=== PATIENT | female | born 1935 | race Caucasian/White ===

== ENCOUNTER → 2023-10-21 12:04 | Outpatient (REF) | payer MEDICARE, BC, SELFPAY ==
[2023-10-21 13:12] LABS: % Basophils 0.5 % (0-2); % Eosinophils 2.2 % (0-6); % Immature Granulocytes 0.2 % (0-0.5); % Lymphocytes 14.4 % (20.5-51.1); % Monocytes 9.1 % (1.7-9.3); % Neutrophils 73.6 % (42.2-75.2); Absolute Eosinophils 0.1 10^3/uL (0-0.7); Absolute Lymphocytes 0.8 10^3/uL (1.2-3.4); Absolute Monocytes 0.5 10^3/uL (0.1-0.6); Absolute Neutrophils 4.3 10^3/uL (1.4-6.5); Hematocrit 36.2 % (37.0-47.0); Hemoglobin 12.1 g/dL (12.0-16.0); Mean Corp Hgb Conc. 33.4 g/dL (33.0-37.0); Mean Corpuscular Hgb 30.7 pg (27.0-31.0); Mean Corpuscular Volume 91.9 fL (81.0-99.0); Mean Platelet Volume 10.3 fL (7.4-10.4); Nucleated Red Blood Cells % 0 %; Platelet Count 253 10^3/uL (130-400); Red Blood Cell Count 3.94 10^6/uL (4.20-5.40); Red Cell Dist. Width 12.2 % (11.5-14.5); White Blood Cell Count 5.9 10^3/uL (4.8-10.8)
[2023-10-21 13:55] LABS: ALT (SGPT) 40 U/L (0-35); AST (SGOT) 54 U/L (14-36); Albumin 4.1 g/dl (3.5-5.0); Alkaline Phosphatase 71 U/L (38-126); Blood Urea Nitrogen 20 mg/dl (7-17); Calcium 9.3 mg/dl (8.4-10.2); Carbon Dioxide 27 mmol/L (22-30); Chloride 103 mmol/L (98-107); Glucose 201 mg/dl (70-99); Potassium 4.2 mmol/L (3.5-5.1); Sodium 135 mmol/L (135-145); Total Bilirubin 0.3 mg/dl (0.2-1.3); Total Protein 6.1 g/dl (6.3-8.2); eGFR > 60.00
[2023-10-21 14:37] LABS: Vitamin B12 857 pg/ml (239-931)
== END ==
LOC: REG 12:04
PROVIDERS: ATTENDING PHYSICIAN Family Medicine
DX: Z86.73 Personal history of transient ischemic attack (TIA), and cerebral infarction without residual deficits (principal); I65.23 Occlusion and stenosis of bilateral carotid arteries; E53.8 Deficiency of other specified B group vitamins
CPT/HCPCS: 36415; 80053; 82607; 85025

== ENCOUNTER 2023-12-24 10:19 | Inpatient (IN) | payer MEDICARE, BC, SELFPAY ==
[2023-12-24] VITALS (70 sets, daily range): BP systolic 111–210; BP diastolic 51–198; BMI 19.2
--- NOTE | 2023-12-24 09:55 | ED.CVA ---
History of Present Illness
General
Chief Complaint: CVA/TIA Symptoms
Source: patient
Exam Limitations: none
Time Seen by Provider: 12/24/23 09:49
Nursing documentation reviewed up to this point in time: agreed with
Onset of Stroke Symptoms
Onset of symptoms known: Yes
Date of onset of symptoms: 12/24/23
Time of onset of symptoms: 09:15
History of Present Illness
History of Present Illness:
Patient presents to ED secondary to sudden onset of difficulty walking, associated with slurred speech and right-sided weakness, which occurred while food shopping this morning around 9:15 AM. Event was witnessed by her daughter who is with the
patient. Per paramedics, shortly after receiving the patient, patient's has become more slurred and right-sided weakness has worsened. Patient does not take any blood thinning medications, per paramedics. Stroke alert activated prehospital. Upon
arrival, patient is awake, but unable to provide any further information.
Past History
Past History
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
ED Past Surgical History: Gynecological (interstim device), Orthopedic and Tonsilectomy
Social History
Tobacco: Non-smoker
Alcohol: Occasional
Drug: None
Personal:
Living: alone
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
Family History
Family History: Other (Reviewed and Noncontributory); Negative Early CAD
Review of Systems
Review of Systems
Allergies reviewed?: Yes
All Other Systems: ROS reviewed and negative except as documented in HPI and ROS
Constitutional: Reports no symptoms
EENT: Reports no symptoms
Respiratory: Reports no symptoms
Cardiac: Reports no symptoms
ABD/GI: Reports no symptoms
: Reports no symptoms
Musculoskeletal: Reports no symptoms
Skin: Reports no symptoms
Neurological: Reports weakness and other (Slurred speech, ataxia)
Phy Exam
Physical Exam
Physical Exam:
Physical Exam
General: mild distress, acutely ill. afebrile
Head: nc/at.
Neck: supple. no meningeal signs.
Heart: s1/s2 regular rate and rhythm, no murmur. equal radial pulses.
Lungs: no acute respiratory distress. clear bilaterally
Abdomen: normal bowel sounds. not tender.
Neuro: alert and awake. no focal neurological deficits
Skin: no rash
Psychiatric: well kept. interactive and cooperative
Extremities: no edema.
Course
Orders/Labs/Results
Orders:
Orders
12/24/23 09:49
CT Head W/o Cont STROKE ALERT Urgent
Comment:
Reason For Exam: slurred speech w right sided weakness
CT Head/Neck Ang STROKE ALERT Urgent
Comment:
Reason For Exam: slurred speech w right sided weakness
12/24/23 09:50
Electrocardiogram (*1) Stat
Reason for Study: Other
Other Reason for Exam: neuro symptoms
Bedside Glucose- Treatment ONCE
Cardiac Monitoring- Treatment ONCE
EKG- Treatment ONCE
12/24/23 09:54
Tenecteplase [Tnkase] 12 mg Syringe [Syringe Non-Pump] 0 ml IV NOW
Provider explained risk/benefits to patient &/or caregiver?: Yes
12/24/23 09:58
Ondansetron Injectable [Zofran] 4 mg IV NOW STA
12/24/23 09:59
Add On- LAB Routine
Tests Added?: folate, ferritin, TSH reflex, B12, lipid panel, hbA1c
12/24/23 10:13
Admit Patient As Directed
Co-Sign Provider:
Level of Care: Inpatient admission
Assign to:: ICU
Physician / Group: hospitalist-Darwin
Diagnosis: CVA
Reason for Hospitalization: TNK, ICU
Expected length of stay greater than two midnights?: Yes
ELOS- Estimated Length of Stay in days: 4
I certify the patient meets the requirements for IP care: Yes
Sequential Compression Device [Pneumatic Compression Sleeves] As Directed
Type: Knee high
12/24/23 10:14
DX Deep Vein Thrombosis Video Routine
12/24/23 10:19
Cardiovascular Evaluation Urgent
Comment: ADD ON
Complete Blood Count/With Diff Urgent
Comprehensive Metabolic Panel Urgent
Ferritin Urgent
Comment: ADD ON
Folate Urgent
Comment: ADD ON
Glycohemoglobin (HgbA1c) Urgent
Magnesium Urgent
Comment: ADD ON
PTT Urgent
Prothrombin Time Urgent
TSH Reflex To Free T4 Urgent
Comment: ADD ON
Troponin I Urgent
Vitamin B12 Urgent
Comment: ADD ON
Abnormal Lab Results
12/24/23
10:19
RBC 3.70 L 10^6/uL
(4.20-5.40)
Hgb 11.5 L g/dL
(12.0-16.0)
Hct 34.0 L %
(37.0-47.0)
MCH 31.1 H pg
(27.0-31.0)
Absolute Lymphs (auto) 0.9 L 10^3/uL
(1.2-3.4)
Lymphocytes % 18.8 L %
(20.5-51.1)
Monocytes % 9.8 H %
(1.7-9.3)
12/24/23 10:19
12/24/23 10:19
Vital Signs
Initial and Last Documented VS:
Initial Vital Signs
Temp Pulse Resp BP Pulse Ox
98.1 F 78 20 158/74 98
12/24/23 09:50 12/24/23 09:50 12/24/23 09:50 12/24/23 09:50 12/24/23 09:50
Last Documented Vital Signs
Temp Pulse Resp BP Pulse Ox
98.0 F 74 14 125/56 98
12/24/23 15:57 12/24/23 22:15 12/24/23 22:15 12/24/23 22:14 12/24/23 22:15
MDM/Problems Addressed
MDM/Problems Addressed:
Reviewed patient's admission records from 09/09 -cerebellar infarct noted and discharged home on aspirin and Plavix. no documentation of residual neurological deficit noted at time of discharge.
Per daughter, patient without any deficit, when they were shopping prior to onset of symptoms.
CT head: NAD.
Pt evaluated in ED immediately by (neurology) - recommends TnK. Risk/benefit explained to patient and daughter by .
Critical care alert activated.
Critical care statement: A total of 40 minutes of critical care time was provided for this patient. This includes management of unstable vital signs, evaluation of the patient at bedside, reviewing the patient's pertinent medical records, discussion
with consultants, review of old EKGs and review of pertinent medical records. This time with separate from time utilized to perform the aforementioned documented procedures
*Critical Care Note
Total Time (30-74mins, 75-104mins- exclusive of procedures): 40 min
ED Attending Note
-
Portions of this chart may have been created with voice recognition software.� Occasional wrong word or��sound alike� substitutions may have occurred due to the inherent limitations of voice recognition software.
Discharge Plan
Departure
Patient Disposition: Admit
Date of Disposition: 12/24/23
Time of Disposition: 10:21
Admit to: ICU
Presentation/result/management discussed w/ accepting MD/DO: Hospitalist
Discharge Problem:
Acute CVA (cerebrovascular accident)
Interventions
Interventions:
*Risk Screen - Suicide Last Done: 12/24/23 12:22
*General Assessment Last Done: 12/24/23 09:50
*Neglect/Abuse Screening Last Done: 12/24/23 09:50
*ED COVID-19 Vaccine History Last Done: 12/24/23 12:22
*Nursing Disposition Last Done: 12/24/23 10:40
ED- Pulmonary Assessment Last Done: 12/24/23 09:50
ED- Neurological Assessment Last Done: 12/24/23 09:50
ED- Cardiac Assessment Last Done: 12/24/23 09:50
ED Swallowing Screen Last Done: 12/24/23 09:50
Discharge Date and Time
Discharge Date/Time: 12/24/23 10:40
--- NOTE | 2023-12-24 09:57 | CON.NEURO4 ---
Addendum entered and electronically signed by Keaton Sawyer MD 12/24/23 14:01:
I saw and evaluate the patient I reviewed the note by Sandra Wild agree the findings of the following comments:
88-year-old woman with a previous history of posterior circulation ischemic stroke in August of this year presenting the hospital with acute onset of aphasia right face and arm weakness. There may have been a little bit of slurred speech last
night but the patient was normal when around her daughter this morning and she was actually shopping at [employer] when she had onset of right facial weakness and slurred speech EMS arrived and she seemed to rapidly progress into a more severe stroke
syndrome with aphasia and right arm and leg severe weakness.
No recent head or neck trauma or significant bleeding. Since the stroke she has had some more confusion and functional difficulties. Is maintained on aspirin and had 3 weeks of Plavix after the stroke in August.
Neurologic examination significant for global moderate to severe aphasia, left gaze preference but can cross to the right, right sided hemineglect, right homonymous hemianopia, right facial droop, right arm weakness 3/5, right leg mild weakness with
drift to the bed 4/5 strength of hip flexion.
NIH 12
CT head noncontrast no acute hemorrhage no acute infarct is seen aspects of 10
CTA of the head and neck I do not appreciate any vertebral or basilar or M1 or M2 occlusions carotid arteries bilaterally patent with no significant hemodynamic stenosis bilaterally
Discussed with patient's daughter at bedside the risk and benefits of tenecteplase for acute ischemic stroke which is indicated given severely disabling stroke with no contraindication, discussed risks of 4 to 6% intracranial hemorrhage allergic
reaction to systemic bleeding.
Not an IAT candidate with no proximal large vessel occlusion seen in the M1 M2 segments
Assessment: Left MCA stroke syndrome s/p TNK, atheroembolic versus cardioembolic etiology
Recommendations
-Blood pressure goal less than 180/105 for 20 hours after TNK
-Hold all antithrombotics antiplatelets and anticoagulants and heparin DVT prophylaxis carotid
-IPC's for DVT prophylax
-Speech therapy evaluation, aspiration precautions, NPO for now
-Neurologic checks NIH stroke scale
-Goal normoglycemia
-Monitor on cardiac telemetry and check transthoracic echocardiogram
-ICU level of care
-Brain MRI approximatley 24 hours after the TNK
ICU time = 70 minutes
Original Note:
Documented by User: Sandra Benton NP 12/24/23 13:23
Consultation - Neurology 4
-
CONSULTING PHYSICIAN: Reji Sawyer MD
REFERRING PHYSICIAN: ER/Dr. Brooks
DICTATED BY: RICH Gray
DATE/TIME OF REQUEST: 12/24/23
DATE/TIME OF CONSULTATION: 12/24/23
Reason for Consultation: Stroke Alert
History of Present Illness:
This is an 88-year-old left-handed female who has presented to the hospital as a Stroke Alert with report of abrupt onset right-sided weakness, dysarthria, and aphasia. Patient has been evaluated by our inpatient Neurology service in 2019 for an
event deemed TGA vs TIA and in August 2023 for a CVA.
From previous evaluation by Dr. Fernando on 08/29/23:
''Adapted from my former coworker's note:
'DATE/TIME OF CONSULTATION: 03/02/2020
This is an 84-year-old female presents after she had a sudden onset of a feeling of nausea and confusion and began around 3 PM. She also states that she did not recall much of the events that occurred between 3 PM. This was found by her friend and
brought her to [facility] for further evaluation. Patient denies similar events in the past.
She admits that she has had a very emotional several days. 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 She states she slept most of yesterday which is unusual. Her memory is
significantly improved after she was admitted. She is able to remember most of the things that happened the day before. However she reported she is not completely back to baseline. She also reported that she has had a TIA in the past. She denies
history of stroke. She is taking baby aspirin at home.
Impression: This is an 84-year-old female presents after she had a sudden onset of a feeling of nausea and confusion and began around 3 PM. She also states that she did not recall much of the events that occurred between 3 PM. Her symptoms are
consistent with transient global amnesia.'
~~~~
In 2014 patient underwent MRI of the brain with and without contrast due to memory loss, headaches, and slurred speech. MRI of the brain was performed in 2016 was performed due to reported symptom of memory loss. In the 2014 and 2016 studies, with
and without contrast, there is suggestion of a less than 5 mm left frontal lesion without hemosiderin. Repeated study again in 2019 without contrast demonstrated the prior left frontal lesion and suggestion of hemosiderin in the right occipital lobe
Right-Handed
One day ago (08/28/23), at approximately 12:00 developed new onset of nausea after eating. This was followed by emesis and a feeling of being light-headed. Has experienced an episode of as listed above, although the patient has no recall for same.
She additionally experienced an episode of slurred speech in January 2022 did not have a clear etiology.
There are no known modifying factors. Subsequently after presentation to this hospital's emergency department, the patient underwent CT of the head which prompted this consultation.''
CT head was obtained on arrival in August 2023 and was suggestive of an acute left cerebellar ischemic infarct. Patient was not a candidate for TNK/IAT at that time due to stroke already visualized on CT scan, outside of time window, no LVO on
CTA, and low NIHSS. MRI brain was obtained on 08/31/23 and demonstrates multiple tiny acute ischemic infarcts in the left cerebellum and cerebrum and few tiny foci of previous hemorrhage. Echo was unremarkable. Patient completed 21 days of DAPT and
then has continued on aspirin 81mg daily since.
This morning (12/24/23), patient was in her usual state grocery shopping in [employer] at 0915 when she had a sudden onset of right-sided weakness, aphasia,and dysarthria. EMS were called and a Stroke Alert was activated. EMS report that en route
patient's right-sided weakness progressively worsened. CT head was obtained on arrival to the ER and is negative for any acute abnormalities. CTA head/neck was obtained and is negative for LVO. NIHSS is 11 for partial gaze palsy, mild facial
drooping, partial vs gravity RUE/RLE, ataxia in 2 extremities, sensory inattention, mild slurring, and mild aphasia. BP 158/74. She is taking aspirin 81mg daily but no other blood thinners. IV TNK was administered per protocol at 1012. She is not a
candidate for IAT due to absence of LVO. Unable to complete a full ROS due to aphasia but patient denies any headache.
Past Medical History: CVA, TIA vs TGA, HLD, overactive bladder, dry eye, ulcerative colitis, diverticulosis, osteopenia, lyme disease, Raynaud's, anxiety,
Surgical History: tonsillectomy, left knee arthroscopy/meniscus repair, bladder lift with mesh, lumbar hernia repair
Family History: Reviewed and noncontributory.
Social History: Denies tobacco and illicit drug use. Rare alcohol.
Allergies: Azithromycin, cefuroxime, hydrocodone, orphenadrine, penicillins, sulfa, trimethoprim, loteprednol, tramadol.
Home Medications: See below.
Review of Symptoms:
Per the HPI. I am unable to obtain a complete review of systems�because of patient's inability to provide history.
Physical Exam:
The patient is afebrile, abdomen is nondistended, breathing is unlabored, skin is warm and dry, no edema.
NIH Stroke Scale:
I performed the NIH stroke scale on the patient on 12/24/23 at 0945. The patient scored 1 points on the NIH stroke scale assessment, which were assigned as follows: See below.
Neurologic Examination:
The patient is awake, alert and oriented x 3. She is able to follow some commands and answer some questions appropriately. There is moderate aphasia and dysarthria. On cranial nerve assessment, pupils are 3 mm bilateral, round and reactive to light
and accommodation. Visual mccormick are challenging to assess but appear full. There is a left gaze preference, can cross midline. There is right facial drooping. Hearing is intact bilaterally to normal conversation volume. Tongue palate and uvula are
midline. Sternocleidomastoid strengths are full bilaterally. Motor strengths are 5/5 LUE, 3/5 RUE, 5/5 LLE, and 3/5 RLE on medical research [place] scale. There is drift in the RUE and RLE, some effort against gravity. No involuntary movement noted.
Babinski is absent bilaterally. There is extinction noted on double simultaneous stimulation on the right side but challenging to assess due to aphasia. Coordination is intact by finger to nose in the LUE only.
Lab Results: See below.
Neuro Imaging:
1. CT Head 12/24/23: There are mild changes of cortical atrophy and chronic ischemic disease. There is no evidence of hemorrhage. Findings are stable from the prior study.
2. CTA Head/Neck 12/24/23: final read pending
Differentials for the patient's presentation include:
1. Acute left hemisphere ischemic stroke syndrome.
2. CT head negative for intracranial hemorrhage.
3. Left cerebellar/cerebral embolic ischemic stroke August 2023
Patient has the following risk factors for their symptoms: Hx CVA, HLD, age
IV Tenecteplase/IAT candidacy: IV TNK was administered per protocol at 1012. She is not a candidate for IAT due to absence of LVO.
Recommendations:
�-IV Alteplase administered per protocol.
- Patient admitted to medical ICU after IV Alteplase administration for frequent neuro checks and vital signs per protocol.
- The goal blood pressure for the first 24 hours s/p tPA administration is less than 180/105 mmHg.� After this time, goal is normotension.
-� MRI of the brain within 22-32 hours of Alteplase without contrast for localization of the stroke.�
- Reviewed CTA head/neck.�
- Please hold all antiplatelets for the first 24 hours s/p tPA. Patient's aspirin 81mg can be resumed if MRI brain shows no hemorrhagic conversion.
- Check hemoglobin A1C.�Goal blood glucose levels are less than 180 mg/dL.
- Goal LDL after stroke is <70. LDL is 66. Continue home atorvastatin 80mg as LDL is at goal.
- Check an echocardiogram.
- Please check a noncontrast CT scan of the head 24 hours after tPA administration for a possible hemorrhagic conversion of the stroke/ICH.� This does not need to be done if MRI brain can be timed for this time period.
- Speech language pathology and rehabilitations evaluations today, PT/OT evaluations in 24 hours post Alteplase administration. OK for out of bed to commode or chair with assistance prior to 24 hours.�
- DVT prophylaxis only with sequential compression devices over the 24 hours after tPA administration. Patient can be started on Lovenox subcutaneous for DVT prophylaxis after the 24 hour lilly.
- Rest of the management per the primary team
Discussed patient care with: Dr. Sawyer, Dr. Brooks, nursing staff, the patient
Medications
-
Home Medications
�Medication �Instructions �Recorded
acetaminophen 500 mg tablet 1,000 mg PO Q6HPRN PRN mild pain 05/05/19
(Tylenol Extra Strength)
mirabegron 50 mg tablet,extended 50 mg PO DAILY Urinary issue 05/05/19
release 24 hr (Myrbetriq)
alendronate 70 mg tablet 70 mg PO CORTES@0800 Osteoporsis 03/01/20
aspirin 81 mg tablet,delayed 81 mg PO DAILY Blood clot 03/01/20
release prevention/tx
carboxymethylcellulose sodium 0.5 2 drp BOTH EYES QIDPRN PRN dry eyes 07/29/23
% eye drops (Refresh Tears)
Calcium + D3 1 tab PO DAILY supplement 08/28/23
cyclosporine 0.05 % eye drops in a 1 drp BOTH EYES BID 08/28/23
dropperette (Restasis)
alendronate 70 mg tablet 70 mg PO WEEKLY #0 tabs 09/01/23
atorvastatin 40 mg tablet 80 mg (2 x 40 mg) PO DAILY #30 tabs 09/01/23
clopidogrel 75 mg tablet 75 mg PO DAILY #19 tabs 09/01/23
cyanocobalamin (vitamin B-12) 1,000 mcg PO DAILY #90 tabs 09/01/23
1,000 mcg tablet (Vitamin B-12)
polyethylene glycol 3350 17 gram 17 g PO DAILY #0 ea 09/01/23
oral powder packet (HealthyLax)
NIH Stroke Score
Subsequent NIH Scale
Date of Subsequent NIH Scale: 12/24/23
Time of Subsequent NIH Scale: 09:45
NIH Stroke Score
Level of Consciousness: 0 - Alert
LOC Questions: 0-Answers both correctly
LOC Commands: 0-Performs both correctly
Best Horizontal Gaze: 1-Partial gaze palsy
Visual Mccormick: 0=Normal, no visual loss
Facial Palsy: 1=Minor paralysis
Motor - Right Arm: 2=Partial vs. gravity
Motor - Left Arm: 0=No drift 10 seconds
Motor - Right Le-Partial vs. gravity
Motor - Left Le-No drift 5 seconds
Limb Ataxia: 2-Present in two limbs
Sensation: 0-Normal
Best Language: 1-Mild aphasia
Dysarthria: 1-Mild slurring
Extinction and Inattention: 1-Sensory inattention
Total Score:: 11
Modified [place] (mRS) Score
Modified [place] Scale (mRS): No significant disability. Able to carry out usual activities.
Score: 1
Alteplase Contraindication
Inclusion and Exclusion criteria reviewed: Yes
IAT Contraindications: Imaging doesn't show large vessel occlusion as cause of stroke

Documented by User: Keaton Sawyer MD 12/24/23 13:56
NIH Stroke Score
NIH Stroke Score
Total Score:: 11
Modified [place] (mRS) Score
Score: 1
[2023-12-24] MEDS: TNKASE 2.39999999999999991 MG IV (10:12)
[2023-12-24 10:13] LABS: Glucose - Point of Care 73 mg/dl (70-99)
[2023-12-24] MEDS: ZOFRAN 4 MG IV (10:14)
[2023-12-24 10:40] LABS: % Basophils 0.6 % (0-2); % Immature Granulocytes 0.4 % (0-0.5); % Lymphocytes 18.8 % (20.5-51.1); % Monocytes 9.8 % (1.7-9.3); % Neutrophils 69.4 % (42.2-75.2); Absolute Eosinophils 0.1 10^3/uL (0-0.7); Absolute Lymphocytes 0.9 10^3/uL (1.2-3.4); Absolute Monocytes 0.5 10^3/uL (0.1-0.6); Absolute Neutrophils 3.4 10^3/uL (1.4-6.5); Hemoglobin 11.5 g/dL (12.0-16.0); INR 0.98; Mean Corp Hgb Conc. 33.8 g/dL (33.0-37.0); Mean Corpuscular Hgb 31.1 pg (27.0-31.0); Mean Corpuscular Volume 91.9 fL (81.0-99.0); Nucleated Red Blood Cells % 0 %; Platelet Count 205 10^3/uL (130-400); White Blood Cell Count 4.9 10^3/uL (4.8-10.8)
[2023-12-24 10:41] LABS: APTT 25.6 Sec (23.4-35.0)
[2023-12-24 10:48] LABS: ALT (SGPT) 17 U/L (0-35); AST (SGOT) 25 U/L (14-36); Alkaline Phosphatase 46 U/L (38-126); Blood Urea Nitrogen 17 mg/dl (7-17); Calcium 9.2 mg/dl (8.4-10.2); Carbon Dioxide 27 mmol/L (22-30); Chloride 104 mmol/L (98-107); Glucose 90 mg/dl (70-99); Potassium 4.1 mmol/L (3.5-5.1); Sodium 137 mmol/L (135-145); Total Bilirubin 0.6 mg/dl (0.2-1.3); Total Protein 6.3 g/dl (6.3-8.2); eGFR > 60.00
[2023-12-24 11:01] LABS: Troponin I < 0.012 ng/ml
[2023-12-24 11:14] LABS: HDL Cholesterol 80 mg/dl; LDL Cholesterol, Calculated 66 mg/dl; Magnesium 2.1 mg/dl (1.6-2.3); Total Cholesterol 161 mg/dl (50-199); Triglyceride 76 mg/dl (10-149); Very Low Density Lipoprotein 15 mg/dl (0-30)
--- NOTE | 2023-12-24 11:37 | CON.INTV ---
Consultation
Consultation Request
Date/Time Consultation Requested: 12/23
Date/Time Consultation Performed: 12/23
Reason for Consultation: Critical care
Medical History
-
History of Present Illness:
History probably obtained from the chart as patient has a mild expressive aphasia at this time. Patient is an 88-year-old female with history of hyperlipidemia, recently hospitalized August 2023 where she had acute CVA. She was tried on Plavix
and remain on aspirin. She was seen by cardiology at that time. MRI of the brain at that time revealed multiple tiny foci, with normal echocardiogram. She now presents with sudden onset difficulty walking, slurred speech, right-sided weakness
which occurred while she was shopping at 915 this morning. She was with her daughter. Stroke alert was called, upon arrival to [facility], afebrile, pulse 76, blood pressure 158/74, breathing at 20, 98% on room air. Per ED exam, patient
was alert and awake with no focal neurological defects. ED records suggested tenecteplase was given at 9:[address] imaging was negative. We are asked to help from critical care standpoint 12/24/2023
In the ED, NIH score was 21
Upon arrival to the ICU, patient not moving right side, turning head and speaking although still with aphasia
.
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
Past Medical History
Past Medical History: None (See above)
Past Surgical History: None ( see above)
Social History
Tobacco: Non-smoker
Alcohol: Occasional
Drug: None
Personal:
Living: Alone
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
Allergies / Home Medications
Allergies
Allergy/AdvReac Type Severity Reaction Status Date / Time
azithromycin [From Zithromax] Allergy Nausea Verified 08/29/23 18:18
cefuroxime [From Ceftin] Allergy breathlessness, Verified 08/29/23 18:18
swelling
hydrocodone [From Vicodin] Allergy hallucinati Verified 08/29/23 18:18
ons
orphenadrine [From Norflex] Allergy tremor Verified 08/29/23 18:18
penicillin G Allergy Hives Verified 08/29/23 18:18
Penicillins Allergy Hives Verified 08/29/23 18:18
Sulfa (Sulfonamide Allergy Hives Verified 08/29/23 18:18
Antibiotics)
sulfamethoxazole Allergy Hives Verified 08/29/23 18:18
trimethoprim Allergy Hives Verified 08/29/23 18:18
loteprednol [From Eysuvis] AdvReac Increased Verified 08/29/23 18:18
production
of
phlegm/saliva
tramadol AdvReac Severe Verified 08/29/23 18:18
Hallucinations
Home Medications
�Medication �Instructions �Recorded �Confirmed �Last Taken �Type
mirabegron 50 mg tablet,extended 50 mg PO DAILY Urinary issue 05/05/19 12/24/23 08/28/23 07:00 History
release 24 hr (Myrbetriq)
alendronate 70 mg tablet 70 mg PO CORTES@0800 Osteoporsis 03/01/20 12/24/23 08/23/23 07:00 History
aspirin 81 mg tablet,delayed 81 mg PO DAILY Blood clot 03/01/20 12/24/23 08/28/23 07:00 History
release prevention/tx
carboxymethylcellulose sodium 0.5 2 drp BOTH EYES QIDPRN PRN dry eyes 07/29/23 12/24/23 08/28/23 07:00 History
% eye drops (Refresh Tears)
calcium carbonate 600 mg-vitamin 1 tab PO DAILY supplement ##0 08/28/23 12/24/23 08/28/23 07:00 History
D3 10 mcg (400 unit) tablet
(Calcium 600 + D(3))
cyclosporine 0.05 % eye drops in a 1 drp BOTH EYES BID Eye Condition 08/28/23 12/24/23 08/28/23 07:00 History
dropperette (Restasis)
atorvastatin 80 mg tablet (Lipitor) 80 mg PO DAILY High Cholesterol 12/24/23 12/24/23 Unknown History
cyanocobalamin (vitamin B-12) 1,000 mcg PO DAILY Supplement 12/24/23 12/24/23 Unknown History
1,000 mcg tablet (Vitamin B-12)
Review of Systems
-
Unable to Obtain full review of systems at this time due to: Acuity
Vitals / Labs / Diagnostic Testing
Vital Signs
Temp Pulse Resp BP Pulse Ox
98.1 F 75 12 158/79 95
12/24/23 09:50 12/24/23 11:00 12/24/23 11:00 12/24/23 11:00 12/24/23 11:00
Lab Data
12/24/23 10:19
12/24/23 10:19
Laboratory Results
12/24/23
10:19
PT 13.0
INR 0.98
APTT 25.6
Diagnostic Testing:
Physical Exam
-
HEENT: Normocephalic and Anicteric
Cardiovascular: S1/S2, Regular Rhythm, Murmur (n), Rub (n) and Peripheral Edema (n)
Respiratory: Wheeze (n), Rales (n), Rhonchi (n) and Non-Labored Respirations
GI: Soft, Non Distended and Non Tender
Neurology: Awake, Alert and No Motor Deficits (Right-sided weakness, right facial droop. She is moving all extremities. Pupils equal and reactive)
Skin: Good Color
General: Comfortable
Assessment
-
88-year-old female with history of cerebellar stroke August 2023 at which time she was started on Plavix therapy in addition to her aspirin therapy. She has a history of hypertension, hypercholesterolemia. At around 915 this morning, she had
difficulty walking, was with her daughter. She was brought to the ED, stroke alert called. Head CT was unremarkable. TNK was given around 954 per ED records, following neurology evaluation. On presentation, blood pressure 150s over 70s. Patient
admitted to ICU for further management
Acute stroke
S/p TNK 9:54 AM
Right-sided weakness, right facial droop
History of bilateral cerebellar stroke, August 2023
Dizziness
Discharged on Plavix/aspirin
Echocardiogram normal
Conditions present prior to admission:
Hypertension/hyperlipidemia
Bilateral carotid disease
History of transaminitis
Mild cirrhosis per abdominal ultrasound
History of ulcerative colitis/diverticulosis
Osteopenia
History of moderate alcohol use, recently decreased
Plan/recommendations
At this time, patient remains critically ill but stable. Presently blood pressure 150s over 70s in the ICU
She is now starting to move her right side, turning her head. She does have a mild expressive aphasia
NIH in the ER [address] imaging negative for acute findings
Patient received TNK at approximately 9:54 AM
Patient is complaining of some mild neck discomfort, but given her expressive aphasia, cannot confirm
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
Moving forward
Continue with neurochecks
Low threshold for repeat imaging with any worsening symptoms
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 Hospital stay reviewed
At that time, embolic phenomenon was suspected, echocardiogram was normal
Patient did have bilateral carotid disease, 50%.
MRI in 24 hours
Neurology following
Follow blood pressure, target blood pressure 140-180
Follow blood sugars
Reviewed with critical care nursing, primary service
Will follow
TCCT 31 min
[2023-12-24 11:47] LABS: TSH Reflex To Free T4 0.64 uIU/ml (0.47-4.68)
[2023-12-24 11:51] LABS: Ferritin 83.4 ng/ml (11.1-264.0)
[2023-12-24 12:23] LABS: Folate 4.8 ng/ml (2.76-20); Vitamin B12 540 pg/ml (239-931)
--- NOTE | 2023-12-24 13:26 | PTCARENOTE ---
Addendum entered by Sharona Perez RN 12/24/23 15:16:
pt arrive to ICU at 10:44, report given from ED RN and NIHSS done at bedside
Original Note:
received pt from ED , pt NSR on monitor,Bp 158/79 , on room air with sat of 95% , pt NIHSS on transfer 26 , pt having R side neglect and severe aphasia , slurred speech , at 11:44 pt had improvements in her cognition , her NIHSS up to 6 , pt
daughter in room , updated on condition and plan of care, pt is now complaining of posterior neck pain , ice pack applied and repositioning done , pt having some improvement with pain
[2023-12-24] MEDS: TYLENOL 650 MG PO (13:56)
[2023-12-24] MEDS: TRANDATE 5 MG IV (14:04)
--- NOTE | 2023-12-24 14:17 | PTOTSP ---
ST Acute Care Evaluation
Pt presents with slight oropharyngeal dysphagia characterized by prolonged mastication and bolus formation, reduced bolus formation, oral residue (R>L), distracted while eating, and brief, weak cough on 1x trial indicative of possible reduced airway
protection.
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 following directions, reading) in comparison to expressive language (e.g. expressive language lacking content/clear message;
impaired writing). Pt appears to have some awareness of her deficits (e.g. visual) and occasional awareness of errors when reading and writing, but reduced awareness of other errors.
Recommendations:
- Initiate PO diet of regular solids, thin liquids, meds as tolerated.
- General aspiration precautions: Only feed when fully awake/alert, HOB fully upright for all PO intake, reduce distractions during PO intake, alternate liquids and solids, check R buccal cavity for pocketing.
- Pt would benefit from continued speech language pathology services upon discharge at the acute rehabilitation level of care.
- BREAKFAST SUPERVISOR to continue with dysphagia tx as well as speech and language tx for mixed aphasia while inhouse in acute care.
--- NOTE | 2023-12-24 15:09 | PTCARENOTE ---
pt continued to complain of sharp neck pain, she was given Tylenol , her BP up to 200s and was given Trandate 5mg at 14:00 her blood pressure is now 156/84 , she states her headache is improved , she was seen by speech therapy and now able to eat ,
recent NIHSS now down to 5 , pt has a new complaint of double vision , she improved with here stroke assessment with covering her R eye while she is looking at pictures to name objects , pt was seen by Dr Sawyer
--- NOTE | 2023-12-24 16:00 | CON.MD ---
Documented by User: Cornelia Campos PA-C 12/25/23 16:50
Consultation - Medical
-
Referring Provider: Merlin Vance
Chief Complaint: CVA
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
Hypercholesterolemia) presented to [place] ED on 12/24/2023 with sudden onset of difficulty walking, associated with slurred speech and right-sided weakness, which occurred while food shopping this morning . Event was witnessed by her daughter.
Shortly after master automotive technician arrival, patient's speech, became more slurred with worsening right-sided weakness. Stroke alert activated prehospital. Upon arrival, patient unable to provide further information. Noncontrast CT of the head with no acute
hemorrhage or acute infarct. CTA of the head and neck, interpreted by neurology, pending radiology results, did not appreciate vertebral, basilar or M1 or M2 occlusions. Carotid arteries bilaterally patent with no significant hemodynamic stenosis.
Patient is status post TNK for atheroembolic versus cardioembolic stroke. Not a candidate for IAT without proximal large vessel occlusion seen in the M1 M2 segments.
Brain MRI - 12/25/23
Nonhemorrhagic acute/subacute infarcts involving the left thalamus, left occipital lobe and bilateral cerebellar hemispheres. Findings suggest embolic etiology. No intracranial hemorrhage.
Echo:
Hyperdynamic left ventricular systolic function. LV ejection fraction is 70-
75%.
Mild concentric left ventricular hypertrophy.
Aortic sclerosis without stenosis. Trace aortic regurgitation.
Interatrial septum is intact with no evidence of shunting by color flow
Doppler.
Compared to 09/01/23: no significant change.
Past Medical History: Prior CVA-August 2023, Hypertension, hypercholesterolemia
Procedure History: InterStim implant, tonsillectomy,
Family History: non contributory
Social History:
Functional Level Premorbidly: Independent with all activities
Functional Level Currently: Supine to sit�supervision, rolling�supervision, sit to stand transfer�min assist, stand to sit�min assist x 1 for transfer from edge of the bed, decreased speed, overall fair stability. Patient ambulated 18 feet x 2
without assisted device and initially min assist x 1 but progressed to mod assist x 1 for safety as patient reported dizziness in bathroom.
Tobacco: Denies
Alcohol: Occasionally. Use to drink heavier
Drug use: Denies
Lives with: Alone
24-hour assistance available:
Number of floors: 1
# steps to enter:
# steps to second floor: none
Potential First floor set up:yes
Driving: yes
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
�
Allergies:
Allergy/AdvReac Type Severity Reaction Status Date / Time
azithromycin [From Zithromax] Allergy Nausea Verified 08/29/23 18:18
cefuroxime [From Ceftin] Allergy breathlessness, Verified 08/29/23 18:18
swelling
hydrocodone [From Vicodin] Allergy hallucinati Verified 08/29/23 18:18
ons
orphenadrine [From Norflex] Allergy tremor Verified 08/29/23 18:18
penicillin G Allergy Hives Verified 08/29/23 18:18
Penicillins Allergy Hives Verified 08/29/23 18:18
Sulfa (Sulfonamide Allergy Hives Verified 08/29/23 18:18
Antibiotics)
sulfamethoxazole Allergy Hives Verified 08/29/23 18:18
trimethoprim Allergy Hives Verified 08/29/23 18:18
ibuprofen [From Motrin] AdvReac abdominal Verified 12/24/23 15:20
pain ,
ulcer
loteprednol [From Eysuvis] AdvReac Increased Verified 08/29/23 18:18
production
of
phlegm/saliva
tramadol AdvReac Severe Verified 08/29/23 18:18
Hallucinations
Review of Systems:
Constitutional: (x) Normal _
Eye: (x) Normal _
Ear/Nose/Throat: (x) Normal _
Respiratory: (x) Normal _
Cardiovascular: (x) Normal _
Gastrointestinal: (x) Normal _
Genitourinary: (x) Normal _
Musculoskeletal: (x) Normal _
Integumentary: (x) Normal _
Neurologic: (x) cva, expressive, receptive aphasia
Psychiatric: (x) Normal _
Endocrine: (x) Normal _
Hematologic/Lymphatic: (x) Normal _
Allergic/Immunologic: (x) Normal _
Medications:
Active Current Visit Medication List
Category Date Time Status
Acetaminophen [Tylenol] Med 12/24/23 11:33 Active
650 mg PO Q4HPRN PRN
Docusate Sodium [Colace] Med 12/25/23 08:00 Active
100 mg PO DAILY
Flush (0.9% Sodium Chloride) [Flush (Nss)] Med 12/24/23 12:00 Active
See Dose Instructions IV PER PROTOCOL
Labetalol HCl [Trandate] Med 12/24/23 11:39 Active
5 mg IV Q6HPRN PRN
Magnesium Hydroxide [Milk of Magnesia] Med 12/24/23 11:39 Active
30 ml PO HSPRN PRN
Vitals:
Physical Exam:
General Appearance/Observation: Well-developed, well-nourished individual in no apparent distress.
Pain/Comfort Assessment: Denies
Mood/Affect: Appropriate, pleasant
Integumentary/Operative Site:
�� Pressure Ulcer Evaluation: absent over heels.
��
�� Other Type of Wound: ecchymosis, arms, hand
��
Eyes: Conjunctiva/Lids: normal ��� Pupils: pupils equal round and reactive to light and Accommodation
Ears/Nose/Throat: oral mucosa a little dry,� throat clear.������������ Lips/Teeth/Gums: normal
Neck: No muscle spasm or tenderness
Cardiovascular: Heart: regular, no murmur
Pulses: dorsalis pedis 2+ bilaterally
Respiratory: Respiratory Effort/Chest Expansion: normal ������� Auscultation: Clear to auscultation bilaterally
Gastrointestinal: abdomen not tender, no distension, normal abdominal bowel sounds
Genitourinary: No Cowart
Extremities: Edema: None Cyanosis: None Trophic changes: None
Neurology Exam:
Orientation: Alert, Oriented to self, place, not year- 2013, season-was close, said beginning of Summer
Memory: Intact for immediate medical concerns with minor deviation in details from Daughter's
Higher cortical function
Repetition: Intact
Comprehension: Intact
Two step command: Intact
Naming: Intact
Cranial Nerves:
�� CNII: Pupillary light reflex: Intact��� Visual Field: impaired on both side
�� CN III, IV, : Extraocular muscles: Intact, except slight delay in fully turning to the right pass midline
�� CN V: Facial Sensation at Forehead: Intact, Maxilla: Intact, Mandible: Intact
�� CN VII: Facial movement:mild right weakness
�� CN VIII: Hearing: said hears on the left side more 'grainy'
�� CN IX/X: Speech & swallow: some expressive aphasia, low volume Position of Uvula: Midline
�� CN XI: Shoulder shrug: Symmetric
�� CN XII: Tongue protrusion: slightly to the right
Sensory:
�� Light touch: Intact in bilateral upper and lower extremities
��
Reflexes:
�� Biceps: 2+ bilaterally
�� Brachioradialis: 2+ bilaterally
�� Triceps: 2+ bilaterally
�� Patellar: 2+ bilaterally
�� Achilles: 2+ bilaterally
�� Babinski: Down going bilaterally
�� Clonus: None
�� Marycruz: Negative bilaterally
Cerebellar: Dysmetria/Ataxia: some impairment with nose to finger on both side, slightly more on the right
Musculoskeletal:
Motor: (Manual muscle scale 0-5)
Muscle SA EF WE EE FF FA HF KE DF EHL PF
Right� 3+ 4 3 4 2 2 4 4 4 4 4
Left 5 5 5 5 5 5 5 5 5 5 5
bony deformity of fingers
Tone: Normal in all extremities
Range of Motion: Passively within normal limits in all extremities
Lab Results
Labs
WBC 6.3 10^3/uL (4.8-10.8) 12/25/23 03:21
RBC 4.12 10^6/uL (4.20-5.40) L 12/25/23 03:21
Hgb 12.6 g/dL (12.0-16.0) 12/25/23 03:21
Hct 37.0 % (37.0-47.0) 12/25/23 03:21
MCV 89.8 fL (81.0-99.0) 12/25/23 03:21
MCH 30.6 pg (27.0-31.0) 12/25/23 03:21
MCHC 34.1 g/dL (33.0-37.0) 12/25/23 03:21
RDW 12.9 % (11.5-14.5) 12/25/23 03:21
Plt Count 207 10^3/uL (130-400) 12/25/23 03:21
MPV 9.9 fL (7.4-10.4) 12/25/23 03:21
Abs Immat Gran (auto) 0.0 10^3/uL (0-0.05) 12/24/23 10:19
Absolute Neuts (auto) 3.4 10^3/uL (1.4-6.5) 12/24/23 10:19
Absolute Lymphs (auto) 0.9 10^3/uL (1.2-3.4) L 12/24/23 10:19
Absolute Monos (auto) 0.5 10^3/uL (0.1-0.6) 12/24/23 10:19
Absolute Eos (auto) 0.1 10^3/uL (0-0.7) 12/24/23 10:19
Absolute Basos (auto) 0.0 10^3/uL (0-0.2) 12/24/23 10:19
Immature Gran % 0.4 % (0-0.5) 12/24/23 10:19
Neutrophils % 69.4 % (42.2-75.2) 12/24/23 10:19
Lymphocytes % 18.8 % (20.5-51.1) L 12/24/23 10:19
Monocytes % 9.8 % (1.7-9.3) H 12/24/23 10:19
Eosinophils % 1.0 % (0-6) 12/24/23 10:19
Basophils % 0.6 % (0-2) 12/24/23 10:19
Nucleated RBC % 0 % 12/24/23 10:19
PT Cancelled 12/25/23 03:21
INR Cancelled 12/25/23 03:21
APTT Cancelled 12/25/23 03:21
Sodium 137 mmol/L (135-145) 12/25/23 03:21
Potassium 4.4 mmol/L (3.5-5.1) 12/25/23 03:21
Chloride 105 mmol/L (98-107) 12/25/23 03:21
Carbon Dioxide 27 mmol/L (22-30) 12/25/23 03:21
BUN 16 mg/dl (7-17) 12/25/23 03:21
Creatinine 0.5 mg/dL (0.6-1.0) L 12/25/23 03:21
Estimated Creat Clear 47 ml/min 12/25/23 03:21
eGFR > 60.00 12/25/23 03:21
Glucose 89 mg/dl (70-99) 12/25/23 03:21
Hemoglobin A1c 6.1 % (4.0-5.6) H 12/24/23 10:19
Calcium 9.4 mg/dl (8.4-10.2) 12/25/23 03:21
Magnesium 2.1 mg/dl (1.6-2.3) 12/24/23 10:19
Ferritin 83.4 ng/ml (11.1-264.0) 12/24/23 10:19
Total Bilirubin 0.6 mg/dl (0.2-1.3) 12/24/23 10:19
AST 25 U/L (14-36) 12/24/23 10:19
ALT 17 U/L (0-35) 12/24/23 10:19
Alkaline Phosphatase 46 U/L (38-126) 12/24/23 10:19
Troponin I < 0.012 ng/ml 12/24/23 10:19
Total Protein 6.3 g/dl (6.3-8.2) 12/24/23 10:19
Albumin 4.0 g/dl (3.5-5.0) 12/24/23 10:19
Triglycerides 111 mg/dl (10-149) 12/25/23 03:21
Total Cholesterol 185 mg/dl (50-199) 12/25/23 03:21
LDL Cholesterol, Calc 68 mg/dl 12/25/23 03:21
VLDL Cholesterol, Calc 22 mg/dl (0-30) 12/25/23 03:21
HDL Cholesterol 95 mg/dl 12/25/23 03:21
Vitamin B12 540 pg/ml (239-931) 12/24/23 10:19
Folate 4.8 ng/ml (2.76-20) 12/24/23 10:19
TSH (Reflex) 0.64 uIU/ml (0.47-4.68) 12/24/23 10:19
POC Glucose 73 mg/dl (70-99) 12/24/23 10:12
�
Diagnostic Results: as per HPI
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
Hypercholesterolemia) presented to [place] ED on 12/24/2023 with sudden onset difficulty walking, associated with slurred speech and right-sided weakness. She is status post TNK. Not a candidate for IAT without proximal large vessel occlusion
seen in the M1 M2 segments. MRI of brain with Nonhemorrhagic acute/subacute infarcts involving the left thalamus, left occipital lobe and bilateral cerebellar hemispheres. Findings suggest embolic etiology. No intracranial hemorrhage.
Plan
PT/OT to increase independence with ADLs, improve balance, coordination, endurance, strength, mobility, community reintegration, decreased burden of care on others and family education.
CVA: Secondary prophylaxis with aspirin, statin, and blood pressure control (SBP less than 180 and diastolic less than 100 to participate with therapy for ischemic stroke). Continue to monitor neurologic status. Plavix and ASA 81mg
Right dominant hemiparesis: High risk for falls and sliding out of chair/bed. Safety reinforced.
- Avoid using affected arm to help lift or pull patient as this will cause trauma to the shoulder.
Right Neglect: makes patient at increased risk for falls.� Will need therapy to work on scanning of environment for safe navigation.
Dysphagia: speech evaluation. aspiration precautions.� Advance diet as tolerated.
Dysarthria: speech evaluation
Aphasia: speech evaluation
HTN: Goal less than 180/100--Hold CATALINA/ARB. Labatololl 5 mg IV every 6 as needed,if blood pressure is more than 180/100. continue medications, monitor closely
HLD: Atorvastatin 80 mg daily
Coronary artery disease : Aspirin, statin, beta-oneyda
Mild cirrhosis: per abdominal ultrasound
Suspected WESLY/Hypoxia: 88% on 4 L during sleep. Nocturnal oxygen. May need sleep study OP. possible CPAP use.
Anemia: Hgb 12.6. Likely multifactorial.� Continue to monitor.
Psych: Psychology consult.� Monitor mood, adjust medications as needed.
Skin: monitor for pressure sores/rashes/lesions.
Pain: acetaminophen needed, Lidoderm patch.
Bowel: Colace and Senna, PRN bisacodyl.
Overactive Bladder: Myrbetriq 50mg qd. Time void, PVRs, PRN straight cath.
Alcohol Abuse: Alcohol cessation education, offering of outpatient alcohol abuse program. Mild cirrhosis on abd U/S
History of ulcerative colitis/diverticulosis: monitor
GI Prophylaxis: Pantoprazole
DVT Prophylaxis: SCS- at the moment. When cleared would benefit from heparin
Pulmonary: Incentive spirometry
Alcohol Abuse: Alcohol cessation education, offering of outpatient alcohol abuse program. Mild cirrhosis on abd U/S
Safety: Continue to reinforce assistance with all transfers.
Code Status:� Full code
Dispo (date/plan/equipment needs): Home with family care.� Social history reviewed.
Functional and Medical Goals: Modified Independent with ADL�s, ambulation, transfers
Discharge Destination: Acute Inpatient rehabilitation
Summary of recommendations: Acute inpatient rehabilitation for PT/OT to increase independence with ADLs, improve balance, coordination, endurance, strength, mobility, community reintegration, decreased burden of care on others and family education.
CVA: Secondary prophylaxis with aspirin, statin, and blood pressure control (SBP less than 180 and diastolic less than 100 to participate with therapy for ischemic stroke). Continue to monitor neurologic status. Plavix and ASA 81mg
Right dominant hemiparesis: High risk for falls and sliding out of chair/bed. Safety reinforced.
- Avoid using affected arm to help lift or pull patient as this will cause trauma to the shoulder.
Right Neglect: makes patient at increased risk for falls.� Will need therapy to work on scanning of environment for safe navigation.
Dysphagia: speech evaluation. aspiration precautions.� Advance diet as tolerated.
Dysarthria: speech evaluation
Aphasia: speech evaluation
HTN: Per hospitalist-Goal less than 180/100--Hold CATALINA/ARB. Labatolol 5 mg IV every 6 as needed,if blood pressure is more than 180/100. Must be stable on PO blood pressure medicine for 24 hours prior to discharge/transfer. monitor closely. SBP less
than 180 and diastolic less than 100 to participate with therapy for ischemic stroke).
DVT Prophylaxis: SCS. When cleared would benefit from heparin
Pulmonary: Incentive spirometry
GI Prophylaxis: Pantoprazole
Safety: Continue to reinforce assistance with all transfers.
Thank you for allowing me to care for your patient. Please contact me with any questions or concerns.
This note was dictated using a voice recognition system. Please excuse any typographical errors from public housing interviewer. If you believe there are any discrepancies, please notify our office.

Documented by User: Duane Ace MD 12/25/23 22:22
Consultation - Medical
-
Referring Provider: Merlin Vance
Chief Complaint: CVA
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
stroke, HTN, Hypercholesterolemia) presented to [place] ED on 12/24/2023 with sudden onset of difficulty walking, associated with slurred speech and right-sided weakness, which occurred while food shopping this morning . Event was witnessed by
her daughter. Shortly after master automotive technician arrival, patient's speech, became more slurred with worsening right-sided weakness. Stroke alert activated prehospital. Upon arrival, patient unable to provide further information. Noncontrast CT of the head
with no acute hemorrhage or acute infarct. CTA of the head and neck, interpreted by neurology, pending radiology results, did not appreciate vertebral, basilar or M1 or M2 occlusions. Carotid arteries bilaterally patent with no significant
hemodynamic stenosis. Patient is status post TNK for atheroembolic versus cardioembolic stroke. Not a candidate for IAT without proximal large vessel occlusion seen in the M1 M2 segments.
Brain MRI - 12/25/23
Nonhemorrhagic acute/subacute infarcts involving the left thalamus, left occipital lobe and bilateral cerebellar hemispheres. Findings suggest embolic etiology. No intracranial hemorrhage.
Echo:
Hyperdynamic left ventricular systolic function. LV ejection fraction is 70-
75%.
Mild concentric left ventricular hypertrophy.
Aortic sclerosis without stenosis. Trace aortic regurgitation.
Interatrial septum is intact with no evidence of shunting by color flow
Doppler.
Compared to 09/01/23: no significant change.
Past Medical History: Prior CVA-August 2023, Hypertension, hypercholesterolemia
Procedure History: InterStim implant, tonsillectomy,
Family History: non contributory
Social History:
Functional Level Premorbidly: Independent with all activities
Functional Level Currently: Supine to sit�supervision, rolling�supervision, sit to stand transfer�min assist, stand to sit�min assist x 1 for transfer from edge of the bed, decreased speed, overall fair stability. Patient ambulated 18 feet x 2
without assisted device and initially min assist x 1 but progressed to mod assist x 1 for safety as patient reported dizziness in bathroom.
Tobacco: Denies
Alcohol: Occasionally. Use to drink heavier
Drug use: Denies
Lives with: Alone
24-hour assistance available:
Number of floors: 1
# steps to enter:
# steps to second floor: none
Potential First floor set up:yes
Driving: yes
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
Allergies:
Allergy/AdvReac Type Severity Reaction Status Date / Time
azithromycin [From Zithromax] Allergy Nausea Verified 08/29/23 18:18
cefuroxime [From Ceftin] Allergy breathlessness, Verified 08/29/23 18:18
swelling
hydrocodone [From Vicodin] Allergy hallucinati Verified 08/29/23 18:18
ons
orphenadrine [From Norflex] Allergy tremor Verified 08/29/23 18:18
penicillin G Allergy Hives Verified 08/29/23 18:18
Penicillins Allergy Hives Verified 08/29/23 18:18
Sulfa (Sulfonamide Allergy Hives Verified 08/29/23 18:18
Antibiotics)
sulfamethoxazole Allergy Hives Verified 08/29/23 18:18
trimethoprim Allergy Hives Verified 08/29/23 18:18
ibuprofen [From Motrin] AdvReac abdominal Verified 12/24/23 15:20
pain ,
ulcer
loteprednol [From Eysuvis] AdvReac Increased Verified 08/29/23 18:18
production
of
phlegm/saliva
tramadol AdvReac Severe Verified 08/29/23 18:18
Hallucinations
Review of Systems:
Constitutional: (x) abNormal _ fatigue
Eye: (x) Normal _
Ear/Nose/Throat: (x) Normal _
Respiratory: (x) Normal _
Cardiovascular: (x) Normal _
Gastrointestinal: (x) Normal _
Genitourinary: (x) Normal _
Musculoskeletal: (x) Normal _
Integumentary: (x) Normal _
Neurologic: (x) cva, expressive, receptive aphasia
Psychiatric: (x) Normal _
Endocrine: (x) Normal _
Hematologic/Lymphatic: (x) Normal _
Allergic/Immunologic: (x) Normal _
Medications:
Active Current Visit Medication List
Category Date Time Status
Acetaminophen [Tylenol] Med 12/24/23 11:33 Active
650 mg PO Q4HPRN PRN
Docusate Sodium [Colace] Med 12/25/23 08:00 Active
100 mg PO DAILY
Flush (0.9% Sodium Chloride) [Flush (Nss)] Med 12/24/23 12:00 Active
See Dose Instructions IV PER PROTOCOL
Labetalol HCl [Trandate] Med 12/24/23 11:39 Active
5 mg IV Q6HPRN PRN
Magnesium Hydroxide [Milk of Magnesia] Med 12/24/23 11:39 Active
30 ml PO HSPRN PRN
Vitals:
Temp Pulse Resp BP Pulse Ox
97.5 F 78 20 91/47 93
12/25/23 19:46 12/25/23 19:46 12/25/23 19:46 12/25/23 19:46 12/25/23 19:46
Height 5 ft
Actual Weight 42.6 kg
Body Mass Index (BMI) 18.3
Physical Exam:
General Appearance/Observation: Well-developed, well-nourished individual in no apparent distress.
Pain/Comfort Assessment: Denies
Mood/Affect: Appropriate, pleasant
Integumentary/Operative Site:
�� Pressure Ulcer Evaluation: absent over heels.
�� Other: ecchymosis, arms, hand
��
Eyes: Conjunctiva/Lids: normal ��� Pupils: pupils equal round and reactive to light and Accommodation
Ears/Nose/Throat: oral mucosa a little dry,� throat clear.������������ Lips/Teeth/Gums: normal
Neck: No muscle spasm or tenderness
Cardiovascular: Heart: regular, no murmur
Pulses: dorsalis pedis 2+ bilaterally
Respiratory: Respiratory Effort/Chest Expansion: normal ������� Auscultation: Clear to auscultation bilaterally
Gastrointestinal: abdomen not tender, no distension, normal abdominal bowel sounds
Genitourinary: No Cowart
Extremities: Edema: None Cyanosis: None Trophic changes: None
Neurology Exam:
Orientation: Alert, Oriented to self, place, not year- 2013, season-was close, said beginning of Summer
Memory: Intact for immediate medical concerns with minor deviation in details from Daughter's
Repetition: Intact
Comprehension: Intact
Two step command: Intact
Naming: Intact
Cranial Nerves:
�� CNII: Pupillary light reflex: Intact��� Visual Field: impaired on right side
�� CN III, IV, : Extraocular muscles: Intact, except slight delay in fully turning to the right pass midline
�� CN V: Facial Sensation at Forehead: Intact, Maxilla: Intact, Mandible: Intact
�� CN VII: Facial movement:mild right weakness
�� CN VIII: Hearing: said hears on the left side more 'grainy'
�� CN IX/X: Speech & swallow: some expressive aphasia, low volume Position of Uvula: Midline
�� CN XI: Shoulder shrug: Symmetric
�� CN XII: Tongue protrusion: slightly to the right
Sensory:
�� Light touch: Intact in bilateral upper and lower extremities
��
Reflexes:
�� Biceps: 2+ bilaterally
�� Brachioradialis: 2+ bilaterally
�� Triceps: 2+ bilaterally
�� Patellar: 2+ bilaterally
�� Achilles: 2+ bilaterally
�� Babinski: Down going bilaterally
�� Clonus: None
�� Marycruz: Negative bilaterally
Cerebellar: Dysmetria/Ataxia: some impairment with nose to finger on both side, slightly more on the right
Musculoskeletal:
Motor: (Manual muscle scale 0-5)
Muscle SA EF WE EE FF FA HF KE DF EHL PF
Right� 3+ 4 3 4 2 2 4 4 4 4 4
Left 5 5 5 5 5 5 5 5 5 5 5
bony deformity of fingers
Tone: Normal in all extremities
Range of Motion: Passively within normal limits in all extremities
Lab Results
Labs
WBC 6.3 10^3/uL (4.8-10.8) 12/25/23 03:21
RBC 4.12 10^6/uL (4.20-5.40) L 12/25/23 03:21
Hgb 12.6 g/dL (12.0-16.0) 12/25/23 03:21
Hct 37.0 % (37.0-47.0) 12/25/23 03:21
MCV 89.8 fL (81.0-99.0) 12/25/23 03:21
MCH 30.6 pg (27.0-31.0) 12/25/23 03:21
MCHC 34.1 g/dL (33.0-37.0) 12/25/23 03:21
RDW 12.9 % (11.5-14.5) 12/25/23 03:21
Plt Count 207 10^3/uL (130-400) 12/25/23 03:21
MPV 9.9 fL (7.4-10.4) 05/10/24 03:21
Abs Immat Gran (auto) 0.0 10^3/uL (0-0.05) 12/24/23 10:19
Absolute Neuts (auto) 3.4 10^3/uL (1.4-6.5) 12/24/23 10:19
Absolute Lymphs (auto) 0.9 10^3/uL (1.2-3.4) L 12/24/23 10:19
Absolute Monos (auto) 0.5 10^3/uL (0.1-0.6) 12/24/23 10:19
Absolute Eos (auto) 0.1 10^3/uL (0-0.7) 12/24/23 10:19
Absolute Basos (auto) 0.0 10^3/uL (0-0.2) 12/24/23 10:19
Immature Gran % 0.4 % (0-0.5) 12/24/23 10:19
Neutrophils % 69.4 % (42.2-75.2) 12/24/23 10:19
Lymphocytes % 18.8 % (20.5-51.1) L 12/24/23 10:19
Monocytes % 9.8 % (1.7-9.3) H 12/24/23 10:19
Eosinophils % 1.0 % (0-6) 12/24/23 10:19
Basophils % 0.6 % (0-2) 12/24/23 10:19
Nucleated RBC % 0 % 12/24/23 10:19
PT Cancelled 12/25/23 03:21
INR Cancelled 12/25/23 03:21
APTT Cancelled 12/25/23 03:21
Sodium 137 mmol/L (135-145) 12/25/23 03:21
Potassium 4.4 mmol/L (3.5-5.1) 12/25/23 03:21
Chloride 105 mmol/L (98-107) 12/25/23 03:21
Carbon Dioxide 27 mmol/L (22-30) 12/25/23 03:21
BUN 16 mg/dl (7-17) 12/25/23 03:21
Creatinine 0.5 mg/dL (0.6-1.0) L 12/25/23 03:21
Estimated Creat Clear 47 ml/min 12/25/23 03:21
eGFR > 60.00 12/25/23 03:21
Glucose 89 mg/dl (70-99) 12/25/23 03:21
Hemoglobin A1c 6.1 % (4.0-5.6) H 12/24/23 10:19
Calcium 9.4 mg/dl (8.4-10.2) 12/25/23 03:21
Magnesium 2.1 mg/dl (1.6-2.3) 12/24/23 10:19
Ferritin 83.4 ng/ml (11.1-264.0) 12/24/23 10:19
Total Bilirubin 0.6 mg/dl (0.2-1.3) 12/24/23 10:19
AST 25 U/L (14-36) 12/24/23 10:19
ALT 17 U/L (0-35) 12/24/23 10:19
Alkaline Phosphatase 46 U/L (38-126) 12/24/23 10:19
Troponin I < 0.012 ng/ml 12/24/23 10:19
Total Protein 6.3 g/dl (6.3-8.2) 12/24/23 10:19
Albumin 4.0 g/dl (3.5-5.0) 12/24/23 10:19
Triglycerides 111 mg/dl (10-149) 12/25/23 03:21
Total Cholesterol 185 mg/dl (50-199) 12/25/23 03:21
LDL Cholesterol, Calc 68 mg/dl 12/25/23 03:21
VLDL Cholesterol, Calc 22 mg/dl (0-30) 12/25/23 03:21
HDL Cholesterol 95 mg/dl 12/25/23 03:21
Vitamin B12 540 pg/ml (239-931) 12/24/23 10:19
Folate 4.8 ng/ml (2.76-20) 12/24/23 10:19
TSH (Reflex) 0.64 uIU/ml (0.47-4.68) 12/24/23 10:19
POC Glucose 73 mg/dl (70-99) 12/24/23 10:12
Diagnostic Results: as per HPI
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
Hypercholesterolemia) presented to [place] ED on 12/24/2023 with sudden onset difficulty walking, associated with slurred speech and right-sided weakness. She is status post TNK. Not a candidate for IAT without proximal large vessel occlusion
seen in the M1 M2 segments. MRI of brain with Nonhemorrhagic acute/subacute infarcts involving the left thalamus, left occipital lobe and bilateral cerebellar hemispheres. Findings suggest embolic etiology. No intracranial hemorrhage.
Plan
PT/OT to increase independence with ADLs, improve balance, coordination, endurance, strength, mobility, community reintegration, decreased burden of care on others and family education.
CVA: Secondary prophylaxis with aspirin, statin, and blood pressure control (SBP less than 180 and diastolic less than 100 to participate with therapy for ischemic stroke). Continue to monitor neurologic status. Plavix and ASA 81mg
Right dominant hemiparesis: High risk for falls and sliding out of chair/bed. Safety reinforced.
- Avoid using affected arm to help lift or pull patient as this will cause trauma to the shoulder.
Dysphagia: speech, aspiration precautions.� Advance diet as tolerated.
Dysarthria: speech
Aphasia: speech evaluation
HTN: Goal less than 180/100--Hold CATALINA/ARB. Labatololl 5 mg IV every 6 as needed,if blood pressure is more than 180/100. continue medications, monitor closely
HLD: Atorvastatin 80 mg daily
Coronary artery disease: Aspirin, statin, beta-oneyda
Mild cirrhosis: per abdominal ultrasound
Suspected WESLY/Hypoxia: 88% on 4 L during sleep. Nocturnal oxygen. May need sleep study OP. possible CPAP use.
Anemia: Hgb 12.6. Likely multifactorial.� Continue to monitor.
Psych: Psychology consult.� Monitor mood, adjust medications as needed.
Skin: monitor for pressure sores/rashes/lesions.
Pain: acetaminophen needed, Lidoderm patch.
Bowel: Colace and Senna, PRN bisacodyl.
Overactive Bladder: Myrbetriq 50mg qd. Time void, PVRs, PRN straight cath.
Alcohol use: Alcohol cessation education, offering of outpatient alcohol abuse program. Mild cirrhosis on abd U/S
History of ulcerative colitis/diverticulosis: monitor
GI Prophylaxis: Pantoprazole
DVT Prophylaxis: mechanical When cleared would benefit from heparin
Pulmonary: Incentive spirometry
Safety: Continue to reinforce assistance with all transfers.
Code Status:� Full code
Dispo (date/plan/equipment needs): Home with family care.� Social history reviewed.
Functional and Medical Goals: Modified Independent with ADL�s, ambulation, transfers
Discharge Destination: Acute Inpatient rehabilitation
Attending Statement: I saw and examined the patient today.� Reviewed care plan with patient, therapy, nursing, and physician patient support assistant.� I agree with the above subjective and physical exam, and plan as documented by DUNIA Campos with adjustments
made as necessary.
Summary of recommendations: Acute inpatient rehabilitation for PT/OT to increase independence with ADLs, improve balance, coordination, endurance, strength, mobility, community reintegration, decreased burden of care on others and family education.
CVA: Secondary prophylaxis with aspirin, statin, and blood pressure control (SBP less than 180 and diastolic less than 100 to participate with therapy for ischemic stroke). Continue to monitor neurologic status. Plavix and ASA 81mg
Right dominant hemiparesis: High risk for falls and sliding out of chair/bed. Safety reinforced.
- Avoid using affected arm to help lift or pull patient as this will cause trauma to the shoulder.
Dysphagia: speech evaluation. aspiration precautions.� Advance diet as tolerated.
Dysarthria: speech evaluation
Aphasia: speech evaluation
HTN: Per hospitalist-Goal less than 180/100--Hold CATALINA/ARB. Labatolol 5 mg IV every 6 as needed,if blood pressure is more than 180/100. Must be stable on PO blood pressure medicine for 24 hours prior to discharge/transfer. monitor closely. SBP less
than 180 and diastolic less than 100 to participate with therapy for ischemic stroke).
DVT Prophylaxis: SCS. When cleared would benefit from heparin
Pulmonary: Incentive spirometry
GI Prophylaxis: Pantoprazole
Safety: Continue to reinforce assistance with all transfers.
Thank you for allowing me to care for your patient. Please contact me with any questions or concerns.
A total of 60 minutes were spent with the patient preparing for the evaluation, obtaining history, performing examination and evaluation, counseling, data review, case management, care coordination, purchase order checker, and EMR documentation.
--- NOTE | 2023-12-24 16:59 | HPS.HSE ---
Addendum entered and electronically signed by Arlen Granados MD 12/24/23 17:38:
Patient seen and examined independently--agree with plan set forth by Dr. Cavazos
GENERAL: well developed, well nourished, female in no apparent distress
HEENT: NC/AT--right facial droop
HEART: regular rate and rhythm, +S1, +S2
LUNGS : clear to auscultation bilaterally
ABDOM: soft, nontender, nondistended, + bowel sounds
EXT: no cyanosis, clubbing, or edema
NEUROLOGIC: expressive aphasia, right facial droop, right hemiparesis/weakness
Acute CVA -- Ischemic stroke versus thrombotic stroke--no contraindications to TnK--ADMIT to ICU--consult petroleum engineering teacher and neuro--head CT neg--No anticoagulation for 24 hours for bleeding risk. Hold aspirin--Bedrest for 24 hours--MRI of brain,
Neurocheck every 4 hours, NIH every 4 hours--Permissive hypertension for 24 hours as we want the blood pressure to be a little on the higher side for blood perfusion in the brain. Goal less than 180/100--Hold CATALINA/ARB--N.p.o. until speech
evaluation--Consult physiatry for rehab--consult PT/OT/speech--check ECHO
Essential Hypertension--Permissive hypertension for 24 hours as we want the blood pressure to be a little on the higher side for blood perfusion in the brain-- Goal less than 180/100--Hold CATALINA/ARB
IV labetalol 5 mg every 6H as needed if blood pressure is more than 180/100
DVT prophylaxis-SCD
Code status -- FULL CODE
Original Note:
Family Physician
-
Family Physician: NO INTERVIEW UNKNOWN
Chief Complaint
-
Neurochecks
Thin liquids
MRI of the brain
Continue alteplase
History of Present Illness
Little history obtained at that time as patient had expressive aphasia. 88-year-old female with history of hypertension, hyperlipidemia, history of TIA with bilateral cerebral strokes in August 2023 presented to the ED with sudden onset of
difficulty walking, slurring speech, right-sided weakness which occurred while she was shopping at 9:15 AM this morning. She was with her daughter. Stroke alert was called, upon arrival to [facility], afebrile, pulse 76, blood pressure 158
x 74, breathing at 28, 98% on room air per ED exam patient was alert and awake and was unable to provide further information.
Medical History
Past Medical History
Past Medical History: Reports CVA and Hypercholesterolemia
Additional Past Medical History:
CVA (TIA, bilateral cerebellar strokes ), Hypercholesterolemia and Other (Overactive bladder, dry eye)
Past Surgical History: Reports Gynocological and Orthopedic
Additional Past Surgical History:
Gynecological (interstim device), Orthopedic and Tonsilectomy
Social History
Tobacco: Non-smoker
Alcohol: Occasional
Personal:
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
Family History
Family History: Not pertinent
Allergies / Home Medications
Allergies reflects when Allergies were last updated in [facility].
Home Medications with original date entered in [employer] [facility]
Allergy/Medication List:
Azithromycin, cefuroxime, hydrocodone, Norflex, penicillin G, penicillins, sulfa, TMP-SMX, ibuprofen,loteprednol
Review of Systems
-
Unable to obtain full review of systems at this time due to: Patient Non-verbal (Expressive aphasia, able to follow commands)
Physical Exam
Vital Signs
Vital Signs
Temp Pulse Resp BP Pulse Ox
98.0 F 72 13 111/52 96
12/24/23 15:57 12/24/23 16:44 12/24/23 16:44 12/24/23 16:44 12/24/23 16:30
Physical Exam
General: Other (Acutely ill, unable to answer questions)
HEENT: NormoCephalic
Respiratory: Clear
Cardiac: S1/S2 and Regular Rhythm
GI: Soft
Musculoskeletal: No Edema
Neuro: Awake, Slurred Speech and Other (Expressive aphasia, able to follow commands, right-side flaccidity, able to open her eyes, facial drooping on the right, unable to smile, sensitive to pain bilaterally UE and LE,)
Psych: Confused
Laboratory Results
-
12/24/23 10:19
12/24/23 10:19
Laboratory Results
PT 13.0 Sec (11.4-14.6) 12/24/23 10:19
INR 0.98 12/24/23 10:19
APTT 25.6 Sec (23.4-35.0) 12/24/23 10:19
Total Bilirubin 0.6 mg/dl (0.2-1.3) 12/24/23 10:19
AST 25 U/L (14-36) 12/24/23 10:19
ALT 17 U/L (0-35) 12/24/23 10:19
Alkaline Phosphatase 46 U/L (38-126) 12/24/23 10:19
Troponin I < 0.012 ng/ml 12/24/23 10:19
Data Reviewed
-
Lab Data: Labs Reviewed by me and Discussed with Physician
Impression/Plan
-
IMPRESSION:
Ischemic stroke versus thrombotic stroke
Hypertension
Assessment and plan
Ischemic stroke versus thrombotic stroke
Patient is confused, unable to answer questions, able to follow commands
Started on alteplase in the ED
No anticoagulation for 24 hours for bleeding risk. Hold aspirin
CT scan showed negative for hemorrhagic stroke
Bedrest for 24 hours
MRI of brain to confirm ischemic stroke
Neurocheck every 4 hours
NIH every 4 hours
Permissive hypertension for 24 hours as we want the blood pressure to be a little on the higher side for blood perfusion in the brain. Goal less than 180/100
Hold CATALINA/ARB
N.p.o. until speech evaluation
Consult physiatry for rehab
Consult neurology
PT/OT
Speech evaluated, recommends thin liquids, talk to Dr. Sawyer, agrees to continue with thin liquids
Hypertension
Permissive hypertension for 24 hours as we want the blood pressure to be a little on the higher side for blood perfusion in the brain. Goal less than 180/100
Hold CATALINA/ARB
IV labetalol 5 mg every 6 as needed if blood pressure is more than 180/100
DVT prophylaxis-SCD
PLAN:
--- NOTE | 2023-12-24 17:57 | PTCARENOTE ---
no change in assessment , daughter at bedside , pt tolerating dinner , feeding self with some assistance
--- NOTE | 2023-12-24 19:15 | PTCARENOTE ---
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 voided in bedpan. dtr at bedside.
[2023-12-25] VITALS (35 sets, daily range): BP systolic 91–175; BP diastolic 46–136; PULSE 82; O2SAT 98; BMI 18.3
--- NOTE | 2023-12-25 | PTCARENOTE ---
no changes in pt assessment.
[2023-12-25 03:30] LABS: Hemoglobin 12.6 g/dL (12.0-16.0); Mean Corp Hgb Conc. 34.1 g/dL (33.0-37.0); Mean Corpuscular Hgb 30.6 pg (27.0-31.0); Mean Corpuscular Volume 89.8 fL (81.0-99.0); Mean Platelet Volume 9.9 fL (7.4-10.4); Platelet Count 207 10^3/uL (130-400); Red Blood Cell Count 4.12 10^6/uL (4.20-5.40); Red Cell Dist. Width 12.9 % (11.5-14.5); White Blood Cell Count 6.3 10^3/uL (4.8-10.8)
[2023-12-25 03:59] LABS: Blood Urea Nitrogen 16 mg/dl (7-17); Calcium 9.4 mg/dl (8.4-10.2); Carbon Dioxide 27 mmol/L (22-30); Chloride 105 mmol/L (98-107); Estimated Creatinine Clearance 47 ml/min; Glucose 89 mg/dl (70-99); HDL Cholesterol 95 mg/dl; LDL Cholesterol, Calculated 68 mg/dl; Potassium 4.4 mmol/L (3.5-5.1); Sodium 137 mmol/L (135-145); Total Cholesterol 185 mg/dl (50-199); Triglyceride 111 mg/dl (10-149); Very Low Density Lipoprotein 22 mg/dl (0-30); eGFR > 60.00
--- NOTE | 2023-12-25 05:00 | PTCARENOTE ---
no changes in pt assessment.
--- NOTE | 2023-12-25 07:41 | W.PN.INTV ---
Today's Communication / Plan
Recommendations
Await repeat imaging
NIH improving
Antiplatelet therapy per neurology
Patient with likely sleep apnea, 88% on 4 L during sleep
Positional therapy
May require screening for nocturnal oxygen
Okay to transfer out of ICU following confirming stable imaging. We will sign off. Please call with questions
Assessment
-
88-year-old female with history of cerebellar stroke August 2023 at which time she was started on Plavix therapy in addition to her aspirin therapy. She has a history of hypertension, hypercholesterolemia. At around 915 this morning, she had
difficulty walking, was with her daughter. She was brought to the ED, stroke alert called. Head CT was unremarkable. TNK was given around 954 per ED records, following neurology evaluation. On presentation, blood pressure 150s over 70s. Patient
admitted to ICU for further management
Acute stroke
S/p TNK 9:54 AM, 12/24/2023
Right-sided weakness, right facial droop
History of bilateral cerebellar stroke, August 2023
Dizziness
Discharged on Plavix/aspirin
Echocardiogram normal
Suspected sleep apnea, hypoxia noted
Conditions present prior to admission:
Hypertension/hyperlipidemia
Bilateral carotid disease
History of transaminitis
Mild cirrhosis per abdominal ultrasound
History of ulcerative colitis/diverticulosis
Osteopenia
History of moderate alcohol use, recently decreased
Plan/recommendations
At this time, patient appears to be stable
Blood pressure stable
NIH improved
Right-sided weakness improving
Initial head CT imaging negative for acute findings
Patient received TNK at approximately 9:54 AM
Denies head aches, neck pain
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
Moving forward
Continue with neurochecks
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 Hospital stay reviewed
At that time, embolic phenomenon was suspected, echocardiogram was normal
Patient did have bilateral carotid disease, 50%.
Await MRI imaging. Patient with bladder stimulator
Neurology following
antiplatelet therapy per neurology
Follow blood pressure, target blood pressure 140-180
Follow blood sugars
Patient with nocturnal hypoxia, 88% on 4 L
There is likely a component of sleep apnea
Positional therapy, may benefit from nocturnal oxygen
Will follow
Reviewed with critical care nursing, primary service
Reviewed with daughter at bedside
For transfer out of ICU once follow-up imaging is confirmed stable. We will sign off once transferred. Please call with questions
Subjective Dataa
Subjective Data
Date of Service:
Date of Service: December 25, 2023
Subjective:
Patient continues to improve neurologically. Tolerating dinner yesterday with assistance. Denies headaches, neck pain. Able to put on glasses with minimal difficulty which is encouraging, using both hands
Objective Data
Data Reviewed
Vital Signs / I&O / Oxygen:
Vital Signs
Temp Pulse Resp BP Pulse Ox
97.6 F 74 12 129/73 100
12/25/23 05:16 12/25/23 07:14 12/25/23 07:14 12/25/23 07:14 12/25/23 06:15
Intake and Output
12/24/23 12/25/23 12/26/23
06:59 06:59 06:59
Output Total 1500 / 1500
Balance -1500 / -1500
SaO2 100
Nasal Cannula flow liters per 4
minute
Physical Exam
General: Comfortable
HEENT: Normocephalic, Anicteric and Other (Narrow posterior oropharynx)
Cardiovascular: S1-S2, Regular Rhythm, Murmur (n), Rub (n) and Peripheral Edema (n)
Respiratory: Wheeze (n), Crackles (n), Rhonchi (n) and Non-Labored Respirations
GI: Soft, Non Distended and Non Tender
Neurology: Awake, Alert and No Motor Deficits (Mild right-sided weakness)
Skin: Cyanosis (n), Jaundice (n) and Rash (n)
Labs/Micro/Reports
Lab Data
12/25/23 03:21
12/25/23 03:21
Laboratory Results
12/24/23 12/25/23
10:19 03:21
PT 13.0 Cancelled
INR 0.98 Cancelled
APTT 25.6 Cancelled
--- NOTE | 2023-12-25 08:32 | W.PN.NEURO.1 ---
Today's Communication / Plan
-
Recommendations
goal of normotension
Continue Atorvastatin 80 mg routinely
-Rehab evaluations
-Goal normoglycemia
Dual antiplatelet agents for 21 days, starting 24 hours after TNK then back to ASA 81 mg routine
Will follow as needed.
Neuro Assessment/Plan
Assessment
CT head noncontrast no acute hemorrhage no acute infarct is seen aspects of 10
CTA of the head and neck do not appreciate any vertebral or basilar or M1 or M2 occlusions carotid arteries bilaterally patent with no significant hemodynamic stenosis bilaterally
Assessment: Left MCA stroke syndrome s/p TNK, atheroembolic versus cardioembolic etiology
Plan
Recommendations
goal of normotension
Continue Atorvastatin 80 mg routinely
-Rehab evaluations
-Goal normoglycemia
Dual antiplatelet agents for 21 days, starting 24 hours after TNK then back to ASA 81 mg routine
Will follow as needed.
Subjective/Objective
Subjective Data
Date of Service: December 25, 2023
Patient reports improvement in symptomatology since yesterday.
Objective Data
Vital Signs
Temp Pulse Resp BP Pulse Ox
36.6 C 74 12 129/73 100
12/25/23 07:48 12/25/23 07:14 12/25/23 07:14 12/25/23 07:14 12/25/23 06:15
Lab Results
12/25/23 03:21
12/25/23 03:21
PT Cancelled 12/25/23 03:21
INR Cancelled 12/25/23 03:21
APTT Cancelled 12/25/23 03:21
Sodium 137 mmol/L (135-145) 12/25/23 03:21
Potassium 4.4 mmol/L (3.5-5.1) 12/25/23 03:21
BUN 16 mg/dl (7-17) 12/25/23 03:21
Glucose 89 mg/dl (70-99) 12/25/23 03:21
Calcium 9.4 mg/dl (8.4-10.2) 12/25/23 03:21
LDL Cholesterol, Calc 68 mg/dl 12/25/23 03:21
Vitamin B12 540 pg/ml (354-931) 12/24/23 10:19
Patient Allergies
azithromycin [From Zithromax] Allergy (Verified 08/29/23 18:18)
Nausea
cefuroxime [From Ceftin] Allergy (Verified 08/29/23 18:18)
breathlessness, swelling
hydrocodone [From Vicodin] Allergy (Verified 08/29/23 18:18)
hallucinations
orphenadrine [From Norflex] Allergy (Verified 08/29/23 18:18)
tremor
penicillin G Allergy (Verified 08/29/23 18:18)
Hives
Penicillins Allergy (Verified 08/29/23 18:18)
Hives
Sulfa (Sulfonamide Antibiotics) Allergy (Verified 08/29/23 18:18)
Hives
sulfamethoxazole Allergy (Verified 08/29/23 18:18)
Hives
trimethoprim Allergy (Verified 08/29/23 18:18)
Hives
ibuprofen [From Motrin] Adverse Reaction (Verified 12/24/23 15:20)
abdominal pain , ulcer
loteprednol [From Eysuvis] Adverse Reaction (Verified 08/29/23 18:18)
Increased production of phlegm/saliva
tramadol Adverse Reaction (Verified 08/29/23 18:18)
Severe Hallucinations
Review of Systems
-
History Source: Patient
All other systems: Reviewed and negative
Constitutional: No Symptoms
EENT: No Symptoms Reported
Respiratory: No Symptoms
Cardiac: No Symptoms
Abdomen/GI: No Symptoms
Genitourinary: No Symptoms
Neuro: Negative Dizzy or Headache
Physical Exam
-
General: No Apparent Distress and Appears Stated Age
Eyes: Round OU, [place] Conjunctivae and No Ptosis
HEENT: Anicteric and Moist Mucous Membranes
Neck: Full Range of Motion
Respiratory: No Dyspnea
Cardiac: No JVD
GI: Non-distended
Skin: Unremarkable
Extremities: No Clubbing, No Cyanosis and No Edema
Psych: Intact Judgement/Insight
Extended Neurological Exam
Mood & Affect: Mood Unremarkable and Affect Unremarkable
Attention Span & Concentration: Awake, Alert and Interactive
Memory: Unremarkable
Tremor: Hand Tremor Absent and Head Tremor Absent
Involuntary Movement: None
Speech: Quality Unremarkable and Quantity Unremarkable
Cranial Nerve II: Left Eye: Pupillary Size Unremarkable and Visual Mccormick Grossly Intact
Cranial Nerve II: Right Eye: Pupillary Size Unremarkable and Visual Mccormick Grossly Intact
Cranial Nerves III, IV, : Extraocular Movement: Grossly Intact
Cranial Nerve VII: Facial Symmetry: Normal Facial Symmetry
Cranial Nerve VIII: Hearing: Unremarkable Hearing to Normal Conversational Volume
Cranial Nerve XI: Shoulder Shrug: Unremarkable
Muscle Strength, Overall: Full Throughout
Muscle Bulk & Tone: Bulk Unremarkable and Tone Unremarkable
Pronator Drift: Drift in Right Upper Extremity; Negative Drift in Left Upper Extremity
Touch Sensation: Unremarkable
Coordination: Twwnfb-boti-eeevwn Testing Unremarkable
Data Reviewed
-
CT Head: Report Reviewed
MRI Head: Report Reviewed (Nonhemorrhagic acute/subacute infarcts involving the left thalamus, left occipital lobe and bilateral cerebellar hemispheres.) and Image Reviewed
Labs: Report Reviewed
Reviewed with: Physician, Nurse, Patient and Family
Old Records: Summarized
[2023-12-25 08:59] LABS: Glycohemoglobin (HgbA1c) 6.1 % (4.0-5.6)
--- NOTE | 2023-12-25 11:01 | PTCARENOTE ---
pt drowsy , awakens easily , NSR on monitor , BP 129/73, voiding on bed recio , tolerating diet , on 4L NC overnight , now off and sats on room air 97% , scheduled for MRI today , labs noted , pt seen by neurology and spoke to pts daughter , pt likely
to be downgraded later today
--- NOTE | 2023-12-25 12:00 | CM ---
Addendum entered by Ariella Moody 12/25/23 12:18:
Sameera is having difficulty with communication; she appears to know what she wants to say and is frustrated when she says different words than she meant. She was able to provide the name of her pharmacy, then started telling a story which was not
comprehensible due to 'word salad'.
Will continue to follow pending PT/OT/ST progress to coordinate discharge needs.
Addendum entered by Ariella Moody 12/25/23 12:06:
PCP is Dr. Peña
Pharmacy is [facility] in [place]
Original Note:
Assessment completed with Sameera and her daughter (who usually lives in [place]). Daughter will be able to stay here through the summer if needed. Anticipate Sameera will require some level of rehabilitation. Case Management will follow to
provide support to patient and family as well as coordinate discharge needs.
--- NOTE | 2023-12-25 14:20 | PN.CDI ---
CDI
- -
CDI:
Physician Documentation Request
Admit Date: 12/24/23 10:19
Dear Doctor Darwin,
Please review the following and provide your response in the progress notes.
Clinical Indicators:
Height: 5 ft
Weight:93 lbs 14.6 oz
BMI:18.3
Other Clinical Notes: Per nutrition consult 12/23 @1436, ' (BMI 19.2- underweight > 65). As per current clinical data pt denied history of wt loss or decreased intake. Note per external medical summary report pt weighed on 12/01/23 94lbs. Previous
hospitalizations: 08/03/23 105lbs; 08/29 102lbs. CBW reflects a 7lbs loss or 6.6% change in wt in 5 months...'
If possible, please provide an associated diagnosis related to the abnormal BMI, such as:
Underweight
Cachectic
- Other
Use of terms such as suspected, likely, concern for, or probable (associated with a specific diagnosis that is being evaluated, monitored, or treated as if it exists) are acceptable and can be coded in the inpatient setting, when documented at the
time of discharge.
Thank you,
Noa Kirk RN
CDI Specialist
[facility]
Please use your independent medical judgment in providing your response.
[2023-12-25] MEDS: LIDOCAINE 4% PATCH 1 PATCH TOPICAL (14:56)
[2023-12-25] MEDS: PLAVIX 75 MG PO (14:56)
[2023-12-25] MEDS: REFRESH EYE DROPS (PF) 2 DROPS BOTH EYES (14:56)
[2023-12-25] MEDS: ASPIR LOW (ENTERIC COATED) 81 MG PO (14:56)
--- NOTE | 2023-12-25 14:57 | W.PN.HOSP.TC ---
Addendum entered and electronically signed by Arlen Granados MD 12/25/23 17:35:
Patient seen and examined independently--agree with plan set forth by Dr. Cavazos
GENERAL: well developed, well nourished, female in no apparent distress
HEENT: NC/AT--right facial droop
HEART: regular rate and rhythm, +S1, +S2
LUNGS : clear to auscultation bilaterally
ABDOM: soft, nontender, nondistended, + bowel sounds
EXT: no cyanosis, clubbing, or edema
NEUROLOGIC: expressive aphasia, right facial droop, right hemiparesis/weakness all improved--pt c/o now of double vision (okay with each eye closed)
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
Goal BP now normotensive -Hold CATALINA/ARB--apprec physiatry for rehab-cont PT/OT/speech-- ECHO without evidence for embolism--d/c destination [place]
Essential Hypertension--Permissive hypertension for 24 hours as we want the blood pressure to be a little on the higher side for blood perfusion in the brain--Now Goal normotensive--Hold CATALINA/ARB
DVT prophylaxis-SCD
Code status -- FULL CODE
Addendum entered and electronically signed by Phuong Cavazos MD, Resident 12/25/23 16:59:
Assessment
Underweight :
BMI 19.2
- continue cholesterol lowering diet
Original Note:
Today's Communication/Plan
-
Downgrade to telemetry
Aspirin plus Plavix
Nonhemorrhagic acute/subacute infarcts involving the left thalamus left occipital lobe and bilateral cerebellar hemisphere
Assessment / Plan
Assessment / Plan
IMPRESSION:
Ischemic stroke versus thrombotic stroke
Hypertension
Assessment and plan
Ischemic stroke versus thrombotic stroke
Alert oriented. Hemodynamically stable
Aspirin plus Plavix for 21 days
Patient came in with aspirin with recent event most likely DC aspirin and keep Plavix or keep both indefinitely
Brain MRI Nonhemorrhagic acute/subacute infarcts involving the left thalamus, left occipital lobe and bilateral cerebellar hemispheres --- likely embolic
Neurocheck every 4 hours
NIH 3
Patient's blood pressure at goal
Hold CATALINA/ARB
Low-cholesterol diet
Appreciate neurology input
Consult physiatry for rehab
PT/OT/speech
Downgrade to telemetry
Diplopia and bilateral eyes
Suspect due to acute CVA
Patient is able to sleep better with 1 eye closed
Eyepatch could be helpful
Hypertension
Continue to hold CATALINA/ARB's
Patient's blood pressure is WNL
Permissive hypertension for 24 hours as we want the blood pressure to be a little on the higher side for blood perfusion in the brain. Goal less than 180/100
IV labetalol 5 mg every 6 as needed if blood pressure is more than 180/100
DVT prophylaxis-SCD
Anticipated Discharge: > 48 hours
Subjective/Interval History
-
Date of Service: December 25, 2023
Patient reports of fatigue, double vision in bilateral eyes.
Objective Data
-
Labs:
Laboratory Results
12/25/23
03:21
WBC 6.3
Hgb 12.6
Hct 37.0
Plt Count 207
PT Cancelled
INR Cancelled
APTT Cancelled
Sodium 137
Potassium 4.4
Chloride 105
Carbon Dioxide 27
BUN 16
Creatinine 0.5 L
Glucose 89
Calcium 9.4
Vital Signs:
Vital Signs
Temp Pulse Resp BP Pulse Ox
97.8 F 89 14 117/67 98
12/25/23 07:48 12/25/23 12:15 12/25/23 12:00 12/25/23 12:00 12/25/23 11:15
I&O
12/24/23 12/25/23 12/26/23
06:59 06:59 06:59
Output Total 1500 / 1500
Balance -1500 / -1500
Review of Systems
-
All other systems: Reviewed and negative (Except mentioned)
EENT: Reports Other (Diplopia bilateral eyes)
Physical Exam
-
General: Comfortable, Conversant and Other (Mild expressive aphasia)
HEENT: Normocephalic and Atraumatic
Respiratory: Clear to Auscultation
Cardiac: Regular Rhythm and S1/S2
GI: Soft, Nontender and Nondistended
Neuro: Awake, Alert, Oriented and Other (Motor strength has improved bilaterally L>R, no facial droop)
Data Reviewed
-
CT Scan: Report Reviewed by me and Discussed with Physician
Labs: Labs Reviewed by me and Discussed with Physician
[2023-12-25] MEDS: COLACE 100 MG PO (15:06)
--- NOTE | 2023-12-25 15:06 | CM ---
Patient daughter requested referral to [facility], per chart review PM&R consult pending. Daughter to consider other SNF options as well. CM will send referral to [facility] as requested.
--- NOTE | 2023-12-25 15:44 | PTCARENOTE ---
pt telemetry status , pt to be transfered to room 409-2
--- NOTE | 2023-12-25 17:52 | PTCARENOTE ---
pt transferred to [facility] , NIHSS done at bedside with receiving RN
[2023-12-25] MEDS: RESTASIS 0.05% OPHTHALMIC EMULSION 1 DROPS BOTH EYES (20:16)
[2023-12-26 03:46] VITALS: BP 131/70
--- NOTE | 2023-12-26 05:13 | PTCARENOTE ---
Received patient in bed, drowsy, difficult to wake. Daughter in room, states that this is 'normal for her, she is a heavy sleeper'. Initial NIH score 6, patient drowsy wakes up briefly and falls back to sleep. [employer] MANAGER aware, patient more awake at
0000, NIH 4 at that time. Plan of care continues.
[2023-12-26 07:00] VITALS: BP 110/63
[2023-12-26] MEDS: LIDOCAINE 4% PATCH 1 PATCH TOPICAL (08:20)
[2023-12-26] MEDS: ASPIR LOW (ENTERIC COATED) 81 MG PO (08:21)
[2023-12-26] MEDS: RESTASIS 0.05% OPHTHALMIC EMULSION 1 DROPS BOTH EYES ×2 (08:21→20:51)
[2023-12-26] MEDS: LIPITOR 80 MG PO (08:21)
[2023-12-26] MEDS: MYRBETRIQ EXTENDED RELEASE 50 MG PO (08:21)
[2023-12-26] MEDS: VITAMIN B-12 1000 MCG PO (08:21)
[2023-12-26] MEDS: COLACE 100 MG PO (08:21)
[2023-12-26] MEDS: PLAVIX 75 MG PO (08:21)
[2023-12-26] MEDS: OSCAL 500 + D 500 MG PO (08:21)
[2023-12-26 08:32] LABS: Hematocrit 37.5 % (37.0-47.0); Hemoglobin 12.4 g/dL (12.0-16.0); Mean Corp Hgb Conc. 33.1 g/dL (33.0-37.0); Mean Corpuscular Hgb 30.9 pg (27.0-31.0); Mean Corpuscular Volume 93.5 fL (81.0-99.0); Mean Platelet Volume 10.6 fL (7.4-10.4); Platelet Count 218 10^3/uL (130-400); Red Blood Cell Count 4.01 10^6/uL (4.20-5.40); Red Cell Dist. Width 12.9 % (11.5-14.5); White Blood Cell Count 4.7 10^3/uL (4.8-10.8)
[2023-12-26 09:10] LABS: Blood Urea Nitrogen 22 mg/dl (7-17); Calcium 9.4 mg/dl (8.4-10.2); Carbon Dioxide 30 mmol/L (22-30); Chloride 101 mmol/L (98-107); Estimated Creatinine Clearance 45 ml/min; Glucose 92 mg/dl (70-99); Potassium 4.5 mmol/L (3.5-5.1); Sodium 134 mmol/L (135-145); eGFR > 60.00
--- NOTE | 2023-12-26 09:21 | W.PN.HOSP.TC ---
Addendum entered and electronically signed by Arlen Granados MD 12/26/23 14:56:
Patient seen and examined independently--agree with plan set forth by Dr. Cavazos
GENERAL: well developed, well nourished, female in no apparent distress
HEENT: NC/AT
HEART: regular rate and rhythm, +S1, +S2
LUNGS : clear to auscultation bilaterally
ABDOM: soft, nontender, nondistended, + bowel sounds
EXT: no cyanosis, clubbing, or edema
NEUROLOGIC: expressive aphasia, right facial droop, right hemiparesis/weakness all improved--pt c/o now of double vision (okay with each eye closed)
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
normotensive --apprec physiatry--cont PT/OT/speech-- ECHO without evidence for embolism--d/c destination [place]
Essential Hypertension--Now normotensive and pt without h/o
underweight BMI--noted
DVT prophylaxis-SCD
Code status -- FULL CODE
Original Note:
Today's Communication/Plan
-
[place] rehab
will talk to
Assessment / Plan
Assessment / Plan
IMPRESSION:
Ischemic stroke versus thrombotic stroke
Hypertension
Assessment and plan
Ischemic stroke versus thrombotic stroke
Alert oriented. Hemodynamically stable
Aspirin plus Plavix for 21 days, likely continue aspirin only after discharge per neurology
Brain MRI Nonhemorrhagic acute/subacute infarcts involving the left thalamus, left occipital lobe and bilateral cerebellar hemispheres --- likely embolic
Patient to be transferred to acute inpatient rehab ([place]) . Appreciate physiatry input
Neurocheck
Patient's blood pressure at goal
Patient has no history of hypertension
Low-cholesterol diet
Appreciate neurology input
PT/OT/speech
Diplopia and bilateral eyes
Suspect due to acute CVA
Patient is able to sleep better with 1 eye closed
TT Dr Fernando, not sure if an eye patch would be helpful
Hypertension
Patient has no personal history of hypertension. She is not taking any medications at home
Blood pressure today is WNL- 110/63
DVT prophylaxis-SCD
Anticipated Discharge: > 48 hours
Subjective/Interval History
-
Date of Service: December 26, 2023
Patient complains of diplopia in bilateral eyes, she is able to see better with 1 eye closed. Motor strength has improved.
Objective Data
-
Labs:
Laboratory Results
12/26/23
06:52
WBC Pending
Hgb Pending
Hct Pending
Plt Count Pending
Sodium 134 L
Potassium 4.5
Chloride 101
Carbon Dioxide 30
BUN 22 H
Creatinine 0.6
Glucose 92
Calcium 9.4
Vital Signs:
Vital Signs
Temp Pulse Resp BP Pulse Ox
98.2 F 79 16 110/63 100
12/26/23 07:00 12/26/23 07:00 12/26/23 07:00 12/26/23 07:00 12/26/23 07:00
I&O
12/25/23 12/26/23 12/27/23
06:59 06:59 06:59
Output Total 1500 / 1500 0 / 0
Balance -1500 / -1500 0 / 0
Review of Systems
-
History Source: Patient
All other systems: Reviewed and negative (Except mentioned)
EENT: Reports Other (Diplopia)
Physical Exam
-
General: Comfortable and Cachectic
HEENT: Normocephalic and Atraumatic
Respiratory: Clear to Auscultation
Cardiac: Regular Rhythm and S1/S2
GI: Soft, Nontender and Nondistended
Musculoskeletal: No Edema
Neuro: AO x 3, No Motor Deficits and Other (Mild expressive aphasia, improved motor strength, no facial droop)
Psych: Calm
Data Reviewed
-
Labs: Labs Reviewed by me and Discussed with Physician
[2023-12-26 11:00] VITALS: BP 107/59
--- NOTE | 2023-12-26 14:20 | PTCARENOTE ---
Report called to [facility], pt. to be transferred to [facility] as family has requested a private room.
[2023-12-26 15:00] VITALS: BP 130/60
[2023-12-26] MEDS: TYLENOL 650 MG PO (20:52)
[2023-12-26 23:20] VITALS: BP 108/54
[2023-12-27 07:00] VITALS: BP 109/58
[2023-12-27] MEDS: ASPIR LOW (ENTERIC COATED) 81 MG PO (08:26)
[2023-12-27] MEDS: OSCAL 500 + D 500 MG PO (08:27)
[2023-12-27] MEDS: LIPITOR 80 MG PO (08:28)
[2023-12-27] MEDS: MYRBETRIQ EXTENDED RELEASE 50 MG PO (08:28)
[2023-12-27] MEDS: VITAMIN B-12 1000 MCG PO (08:28)
[2023-12-27] MEDS: PLAVIX 75 MG PO (08:28)
[2023-12-27] MEDS: RESTASIS 0.05% OPHTHALMIC EMULSION 1 DROPS BOTH EYES ×2 (08:28→20:34)
[2023-12-27] MEDS: COLACE 100 MG PO (08:28)
[2023-12-27] MEDS: LIDOCAINE 4% PATCH 1 PATCH TOPICAL (08:28)
--- NOTE | 2023-12-27 09:24 | W.PN.HOSP.TC ---
Addendum entered and electronically signed by Arlen Granados MD 12/27/23 13:23:
Patient seen and examined independently--agree with plan set forth by Dr. Cavazos
GENERAL: well developed, well nourished, female in no apparent distress
HEENT: NC/AT
HEART: regular rate and rhythm, +S1, +S2
LUNGS : clear to auscultation bilaterally
ABDOM: soft, nontender, nondistended, + bowel sounds
EXT: no cyanosis, clubbing, or edema
NEUROLOGIC: expressive aphasia, right facial droop, right hemiparesis/weakness all improved--pt c/o now of double vision (okay with each eye closed)
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
followed by plavix alone since she had episode on asa--now normotensive --apprec physiatry--cont PT/OT/speech-- ECHO without evidence for embolism--d/c destination [place]
visual changes with diplopia--could try eye patch--from CVA
Essential Hypertension--Now normotensive and pt without h/o so likely not correct diagnosis
underweight BMI--noted
DVT prophylaxis-SCD
Code status -- FULL CODE
Original Note:
Today's Communication/Plan
-
possible transfer to [place] tomorrow
Assessment / Plan
Assessment / Plan
IMPRESSION:
Ischemic stroke versus thrombotic stroke
Hypertension
Assessment and plan
Ischemic stroke versus thrombotic stroke
Alert oriented. Hemodynamically stable
Aspirin plus Plavix for 21 days, likely continue aspirin only after discharge per neurology
Brain MRI Nonhemorrhagic acute/subacute infarcts involving the left thalamus, left occipital lobe and bilateral cerebellar hemispheres --- likely embolic
Patient to be transferred to acute inpatient rehab ([place]) . Appreciate physiatry input
Motor strength improving
Patient's blood pressure at goal
Patient has no history of hypertension
Low-cholesterol diet
Appreciate neurology input
PT/OT/speech
possible transfer to [place] tomorrow or Thursday, discussed with CM
Diplopia and bilateral eyes
Suspect due to acute CVA
Patient is able to sleep better with [address] Fernando, not sure if an eye patch would be helpful
Hypertension
Patient has no personal history of hypertension. She is not taking any medications at home
Blood pressure today is WNL- 110/63
DVT prophylaxis-SCD
Anticipated Discharge: > 48 hours
Subjective/Interval History
-
Date of Service: December 27, 2023
Patient states that she is doing better, good strength, vision is better.
Objective Data
-
Vital Signs:
Vital Signs
Temp Pulse Resp BP Pulse Ox
97.7 F 85 16 109/58 97
12/27/23 07:00 12/27/23 07:00 12/27/23 07:00 12/27/23 07:00 12/27/23 07:00
I&O
12/26/23 12/27/23 12/28/23
06:59 06:59 06:59
Intake Total 240 / 240
Output Total 0 / 0
Balance 0 / 0 240 / 240
Review of Systems
-
History Source: Patient
All other systems: Reviewed and negative
Physical Exam
-
General: Comfortable and Conversant
HEENT: Normocephalic and Atraumatic
Respiratory: Clear to Auscultation
Cardiac: Regular Rhythm and S1/S2
GI: Soft, Nontender and Nondistended
Neuro: Awake, Alert, Oriented and No Motor Deficits; Negative Facial Droop
Psych: Calm
Data Reviewed
-
Labs: Labs Reviewed by me and Discussed with Physician
[2023-12-27 15:00] VITALS: BP 129/76
[2023-12-27 23:01] VITALS: BP 104/55
[2023-12-28 03:28] VITALS: BP 107/58
[2023-12-28 06:26] LABS: Hematocrit 38.2 % (37.0-47.0); Hemoglobin 12.9 g/dL (12.0-16.0); Mean Corp Hgb Conc. 33.8 g/dL (33.0-37.0); Mean Corpuscular Hgb 30.9 pg (27.0-31.0); Mean Corpuscular Volume 91.4 fL (81.0-99.0); Platelet Count 258 10^3/uL (130-400); Red Blood Cell Count 4.18 10^6/uL (4.20-5.40); Red Cell Dist. Width 12.8 % (11.5-14.5); White Blood Cell Count 6.8 10^3/uL (4.8-10.8)
[2023-12-28 07:00] VITALS: BP 118/58
[2023-12-28 07:05] LABS: Blood Urea Nitrogen 33 mg/dl (7-17); Calcium 9.9 mg/dl (8.4-10.2); Carbon Dioxide 28 mmol/L (22-30); Chloride 102 mmol/L (98-107); Estimated Creatinine Clearance 39 ml/min; Glucose 107 mg/dl (70-99); Potassium 4.6 mmol/L (3.5-5.1); Sodium 139 mmol/L (135-145); eGFR > 60.00
[2023-12-28] MEDS: VITAMIN B-12 1000 MCG PO (07:52)
[2023-12-28] MEDS: ASPIR LOW (ENTERIC COATED) 81 MG PO (07:52)
[2023-12-28] MEDS: LIPITOR 80 MG PO (07:52)
[2023-12-28] MEDS: COLACE 100 MG PO (07:52)
[2023-12-28] MEDS: LIDOCAINE 4% PATCH 1 PATCH TOPICAL (07:52)
[2023-12-28] MEDS: PLAVIX 75 MG PO (07:52)
[2023-12-28] MEDS: MYRBETRIQ EXTENDED RELEASE 50 MG PO (07:52)
[2023-12-28] MEDS: RESTASIS 0.05% OPHTHALMIC EMULSION 1 DROPS BOTH EYES (07:52)
[2023-12-28] MEDS: OSCAL 500 + D 500 MG PO (07:53)
[2023-12-28] MEDS: MILK OF MAGNESIA 30 ML PO (10:13)
[2023-12-28 11:00] VITALS: BP 125/59
--- NOTE | 2023-12-28 11:44 | W.DCSUMMARY ---
Addendum entered and electronically signed by Arlen Granados MD 12/28/23 14:03:
Full read and agree with d/c summary as set forth by Dr. Cavazos.
Original Note:
Discharge Summary
Discharge Data
Date of Admission: 12/24/23
Date of Discharge: 12/28/23
-
Pending Results: No
Hospital Course
Discharging Physician : Dr. Arlen Granados, Dr. Phuong Cavazos
Disposition : Acute inpatient rehab
Primary care physician : Dr Phill Peña
Discharge diagnosis :
1.Acute CVA
2.Essential hypertension
Hospital Course :
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 Per paramedics, shortly after
receiving the patient, patient became more slurred and right-sided weakness worsened. Stroke alert was activated prehospital. Head CT was negative for hemorrhage. Patient was started on TnK in the ED . Patient was hypertensive, afebrile, not
tachycardic, not tachypneic in the ED. on physical examination, flaccid paralysis more on the right side than on the left, right-sided facial droop, expressive aphasia, was able to follow commands. MRI of the brain showed stroke of embolic
etiology. Within 24 hours patient's symptoms improved and her NIH stroke score dropped to 3. Over the next few days of hospital course, patient's symptoms improved significantly. Patient's motor strength, expressive aphasia, facial drooping
improved significantly however she reported of diplopia in bilateral eyes. She was started on aspirin plus Plavix for 21 days and to continue on Plavix after 21 days. Atorvastatin 80 mg was also started. Patient was seen by physiatry and they
recommended acute inpatient rehab at [facility] [place]. Patient will be transferred to rehab today. Patient has no history of hypertension, she was not on any medications at home.
On the day of discharge patient's vitals are stable. She has no motor deficit, no facial droop, no aphasia.
Important imaging findings :
Brain MRI
IMPRESSION:
Nonhemorrhagic acute/subacute infarcts involving the left thalamus, left occipital lobe and bilateral cerebellar hemispheres. Findings suggest embolic etiology. No intracranial hemorrhage.
Head CT
IMPRESSION:
There are mild changes of cortical atrophy and chronic ischemic disease. There is no evidence of hemorrhage. Findings are stable from the prior study.
Chest x-ray
IMPRESSION:
No acute cardiopulmonary process.
Procedure findings : none
Discharge Plan
-
Referrals:
UNKNOWN,NO INTERVIEW [Family Provider] -
Prescriptions:
No Action
mirabegron [Myrbetriq] 50 MG tablet extended release 24 hr
50 mg PO DAILY
alendronate 70 MG tablet
70 mg PO CORTES@0800
aspirin 81 MG tablet,delayed release (DR/EC)
81 mg PO DAILY
carboxymethylcellulose sodium [Refresh Tears] 0.5 % Drops
2 drp BOTH EYES QIDPRN PRN (Reason: dry eyes)
cyclosporine [Restasis] 0.05 % Dropperette
1 drp BOTH EYES BID
calcium carbonate-vitamin D3 [Calcium 600 + D(3)] 600 mg-10 mcg (400 unit) Tablet
1 tab PO DAILY Qty: 0
atorvastatin [Lipitor] 80 mg Tablet
80 mg PO DAILY
cyanocobalamin (vitamin B-12) [Vitamin B-12] 1,000 mcg tablet
1,000 mcg PO DAILY
Discharge Date and Time
Print Language: PERSIAN
--- NOTE | 2023-12-28 13:00 | W.PN.HOSP.TC ---
Today's Communication/Plan
-
d/c to [facility]
Assessment / Plan
Assessment / Plan
pt is an 88 year old female
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
followed by plavix alone since she had episode on asa--now normotensive --apprec physiatry--cont PT/OT/speech-- ECHO without evidence for embolism--d/c destination [place]
visual changes with diplopia--could try eye patch--from CVA
Essential Hypertension--Now normotensive and pt without h/o so likely not correct diagnosis
underweight BMI--noted
DVT prophylaxis-SCD
Code status -- FULL CODE
Anticipated Discharge: Today
Subjective/Interval History
-
Date of Service: December 28, 2023
pt ready for [facility]
Objective Data
-
Labs:
Laboratory Results
12/28/23
06:14
WBC 6.8
Hgb 12.9
Hct 38.2
Plt Count 258
Sodium 139
Potassium 4.6
Chloride 102
Carbon Dioxide 28
BUN 33 H
Creatinine 0.7
Glucose 107 H
Calcium 9.9
Vital Signs:
max temp for 24 hours
12/28/23
03:28
Temp 97.9 F
Vital Signs
Temp Pulse Resp BP Pulse Ox
97.8 F 92 17 125/59 97
12/28/23 11:00 12/28/23 11:00 12/28/23 11:00 12/28/23 11:00 12/28/23 11:00
I&O
12/27/23 12/28/23 12/29/23
06:59 06:59 06:59
Intake Total 340 / 340
Balance 340 / 340
Review of Systems
-
All other systems: Reviewed and negative
Physical Exam
-
General: Well Developed, Well Nourished and No Apparent Distress
HEENT: Normocephalic and Atraumatic
Respiratory: Clear to Auscultation; Negative Wheezes or Rhonchi
Cardiac: Regular Rhythm and S1/S2; Negative Murmur
GI: Soft, Nontender, Nondistended and Normal Bowel Sounds
Musculoskeletal: No Clubbing, No Cyanosis and No Edema
Skin: Warm
Neuro: Awake and Alert
--- NOTE | 2023-12-28 14:04 | CM ---
Pt for transfer to [facility] today
Ben from [place] aware
Discussed Imm
Plan - transfer to [facility]
R - [phone]
- [phone]
[2023-12-28 15:00] VITALS: BP 121/62
== END 2023-12-28 15:43 | DRG 62 ==
LOC: 3 WEST ACU 10:19
PROVIDERS: Student in an Organized Health Care Education/Training Program; ADMITTING PHYSICIAN Internal Medicine; CONSULT PHYSICIAN Internal Medicine Critical Care Medicine; CONSULT PHYSICIAN Physical Medicine & Rehabilitation; CONSULT PHYSICIAN Student in an Organized Health Care Education/Training Program; EMERGENCY PHYSICIAN Emergency Medicine
PROC: 3E03317 Introduction of Other Thrombolytic into Peripheral Vein, Percutaneous Approach (ICD-10-PCS; 2023-12-24)
DX: I63.542 Cerebral infarction due to unspecified occlusion or stenosis of left cerebellar artery (principal); I69.351 Hemiplegia and hemiparesis following cerebral infarction affecting right dominant side; Z68.1 Body mass index [BMI] 19.9 or less, adult; I10 Essential (primary) hypertension; R63.6 Underweight; R29.810 Facial weakness; Z79.02 Long term (current) use of antithrombotics/antiplatelets
CPT/HCPCS: 70450; 70496; 70498; 70551; 71045; 80048; 80053; 80061; 82607; 82728; 82746; 82962; 83036; 83735; 84443; 84484; 85025; 85027; 85610; 85730; 92523; 92610; 93005; 93306; 96374; 97116; 97163; 97167; 97530; 97535; 99291; 99406; J3101; Q9967

== ENCOUNTER → 2024-02-02 | Outpatient (REF) | payer MEDICARE, BC, SELFPAY | LOC: DHSLP | PROVIDERS: ATTENDING PHYSICIAN Family Medicine | DX: G47.33 Obstructive sleep apnea (adult) (pediatric) (principal) | CPT/HCPCS: 95800 ==

== ENCOUNTER → 2024-02-10 11:02 | Outpatient (REF) | payer MEDICARE, BC, SELFPAY | LOC: WDC 11:02 | PROVIDERS: ATTENDING PHYSICIAN Family Medicine | DX: Z12.31 Encounter for screening mammogram for malignant neoplasm of breast (principal) | CPT/HCPCS: 77063; 77067 ==

== ENCOUNTER → 2024-02-11 08:35 | Outpatient (REF) | payer MEDICARE, BC, SELFPAY ==
[2024-02-11 10:47] LABS: ALT (SGPT) 26 U/L (0-35); AST (SGOT) 27 U/L (14-36); Albumin 4.2 g/dl (3.5-5.0); Alkaline Phosphatase 67 U/L (38-126); Blood Urea Nitrogen 16 mg/dl (7-17); Calcium 9.6 mg/dl (8.4-10.2); Carbon Dioxide 28 mmol/L (22-30); Chloride 106 mmol/L (98-107); Glucose 84 mg/dl (70-99); Potassium 3.9 mmol/L (3.5-5.1); Sodium 141 mmol/L (135-145); Total Bilirubin 0.4 mg/dl (0.2-1.3); Total Protein 6.4 g/dl (6.3-8.2); eGFR > 60.00
[2024-02-11 19:06] LABS: Hepatitis B Surface Antibody Negative; Hepatitis C Antibody Negative (Negative)
== END ==
LOC: REG 08:35
PROVIDERS: ATTENDING PHYSICIAN Family Medicine
DX: R74.8 Abnormal levels of other serum enzymes (principal)
CPT/HCPCS: 36415; 80053; 86706; 86803

== ENCOUNTER → 2024-02-19 11:01 | Outpatient (REF) | payer MEDICARE, BC, SELFPAY ==
[2024-02-19 12:49] LABS: HDL Cholesterol 75 mg/dl; LDL Cholesterol, Calculated 50 mg/dl; Total Cholesterol 144 mg/dl (50-199); Triglyceride 95 mg/dl (10-149); Very Low Density Lipoprotein 19 mg/dl (0-30)
== END ==
LOC: REG 11:01
PROVIDERS: ATTENDING PHYSICIAN Family Medicine
DX: E78.2 Mixed hyperlipidemia (principal)
CPT/HCPCS: 36415; 80061

== ENCOUNTER → 2024-03-12 10:18 | Outpatient (REF) | payer MEDICARE, BC, SELFPAY ==
[2024-03-12 12:30] LABS: Vitamin B12 920 pg/ml (239-931)
== END ==
LOC: REG 10:18
PROVIDERS: ATTENDING PHYSICIAN Psychiatry & Neurology Neurology; FAMILY PHYSICIAN Family Medicine
DX: E53.8 Deficiency of other specified B group vitamins (principal); R73.09 Other abnormal glucose
CPT/HCPCS: 36415; 82607; 83036

== ENCOUNTER → 2024-08-06 10:02 | Outpatient (REF) | payer MEDICARE, BC, SELFPAY ==
[2024-08-06 11:06] LABS: ALT (SGPT) 26 U/L (0-35); AST (SGOT) 29 U/L (14-36); Albumin 4.5 g/dl (3.5-5.0); Alkaline Phosphatase 47 U/L (38-126); Blood Urea Nitrogen 19 mg/dl (7-17); Calcium 9.6 mg/dl (8.4-10.2); Carbon Dioxide 30 mmol/L (22-30); Chloride 105 mmol/L (98-107); Glucose 83 mg/dl (70-99); HDL Cholesterol 80 mg/dl; LDL Cholesterol, Calculated 64 mg/dl; Sodium 140 mmol/L (135-145); Total Bilirubin 0.3 mg/dl (0.2-1.3); Total Cholesterol 157 mg/dl (50-199); Total Protein 6.6 g/dl (6.3-8.2); Triglyceride 69 mg/dl (10-149); Very Low Density Lipoprotein 13 mg/dl (0-30); eGFR > 60.00
== END ==
LOC: REG 10:02
PROVIDERS: ATTENDING PHYSICIAN Family Medicine
DX: E78.2 Mixed hyperlipidemia (principal); K74.60 Unspecified cirrhosis of liver
CPT/HCPCS: 36415; 80053; 80061

== ENCOUNTER 2024-08-12 09:42 | Outpatient (RCR) | payer MEDICARE, BC, SELFPAY | END 2024-08-12 12:23 | disposition home or self-care (01) | LOC: RPT 09:42 | PROVIDERS: ATTENDING PHYSICIAN Specialist; FAMILY PHYSICIAN Family Medicine | DX: M17.12 Unilateral primary osteoarthritis, left knee (principal); Z73.6 Limitation of activities due to disability; R26.89 Other abnormalities of gait and mobility; M25.562 Pain in left knee | CPT/HCPCS: 97010; 97110; 97112; 97162 ==

== ENCOUNTER → 2024-12-16 09:07 | Outpatient (REF) | payer MEDICARE, BC, SELFPAY | LOC: HWRCS 09:07 | PROVIDERS: ATTENDING PHYSICIAN Internal Medicine Cardiovascular Disease; FAMILY PHYSICIAN Family Medicine | DX: Z86.73 Personal history of transient ischemic attack (TIA), and cerebral infarction without residual deficits (principal); Z01.818 Encounter for other preprocedural examination; E78.00 Pure hypercholesterolemia, unspecified; I47.19 Other supraventricular tachycardia; R94.31 Abnormal electrocardiogram [ECG] [EKG] | CPT/HCPCS: 93306 ==

== ENCOUNTER 2025-01-26 09:18 | Emergency (ER) | payer MEDICARE, BC, SELFPAY ==
[2025-01-26 09:18] VITALS: BP 119/75
[2025-01-26 10:16] VITALS: BMI 19.7
--- NOTE | 2025-01-26 10:36 | ED.GENMED ---
History of Present Illness
General
Chief Complaint: Skin Surface Trauma
Source: patient
Exam Limitations: none
Time Seen by Provider: 01/26/25 09:42
Nursing documentation reviewed up to this point in time: agreed with
History of Present Illness
History of Present Illness:
Patient is a 89-year female who presents to the ER for laceration to left second toe. She is not exactly sure how she cut it but she was working with a drawer putting things away. She does complain of soreness to the area.
She does report area was bleeding which is what made her realize she had a laceration.
Past History
Past History
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
ED Past Surgical History: Gynecological (interstim device), Orthopedic and Tonsilectomy
Social History
Tobacco: Non-smoker
Alcohol: Occasional
Drug: None
Personal:
Living: alone
Employment: Retired ([employer])
Family History
Family History: Other (Reviewed and Noncontributory); Negative Early CAD
Review of Systems
Review of Systems
Allergies reviewed?: Yes
All Other Systems: ROS reviewed and negative except as documented in HPI and ROS
Constitutional: Reports no symptoms; Denies fever, fatigue or chills
Musculoskeletal: Reports other (left 2nd toe laceration )
Phy Exam
General Physical Exam
General Presentation: no apparent distress
General age: appears stated age
General Skin: warm and dry
General Habitus: normal
General Mental: alert
General Hydration: appears well hydrated
Neurological Exam
Neurological Exam: alert and oriented x3
Musculoskeletal Exam
Musculoskeletal Exam: other (Left upper extremity strong pulses left second toe with superficial 1 cm laceration minimal redness surrounding laceration no drainage no bony tenderness no swelling )
Skin Exam
Skin Exam: normal color and warm/dry
Psychiatric Exam
Psychiatric Exam: normal mood/affect
Course
Orders/Labs/Results
Orders:
Orders
01/26/25 10:36
Foot, Left 3 View [CR Foot - Left Min 3 Views] Urgent
Comment: attn left 2nd toe
Reason For Exam: trauma
01/26/25 10:38
Doxycycline [Vibramycin] 100 mg PO NOW STA
01/26/25 10:39
Tetanus/Diphth/Acelpertussis [Adacel] 0.5 ml IM .ONCE ONE
Vital Signs
Initial and Last Documented VS:
Initial Vital Signs
Temp Pulse Resp BP Pulse Ox
98.1 F 99 16 119/75 98
01/26/25 09:18 01/26/25 09:18 01/26/25 09:18 01/26/25 09:18 01/26/25 09:18
Last Documented Vital Signs
Temp Pulse Resp BP Pulse Ox
98.1 F 99 16 128/96 98
01/26/25 09:18 01/26/25 09:18 01/26/25 09:18 01/26/25 11:00 01/26/25 09:18
MDM/Problems Addressed
MDM/Problems Addressed:
Superficial laceration to the left 2nd toe does not require repair cleansed normal saline. Minimal area of redness around the wound she is not exactly sure how she caught herself. Tetanus is updated. No bony tenderness x-rays negative no
drainage. No swelling. Placed on doxycycline 5 days for infection. Discussed close outpatient follow-up with
*Radiology
Radiology exam reviewed: radiology read reviewed
*Critical Care Note
Total Time (30-74mins, 75-104mins- exclusive of procedures): Not Applicable
ED Attending Note
-
Portions of this chart may have been created with voice recognition software.� Occasional wrong word or��sound alike� substitutions may have occurred due to the inherent limitations of voice recognition software.
Discharge Plan
Departure
Patient Disposition: Home (Routine Discharge)
Date of Disposition: 01/26/25
Time of Disposition: 11:26
Patient with high blood pressure during this ER visit?: Yes
Condition: Fair
Covid-19: Not Applicable
Discharge Problem:
Laceration of toe
Instructions: Wound Care (DC), BLOOD PRESSURE
Prescriptions:
New
doxycycline hyclate 100 mg capsule
100 mg PO BID Qty: 5 0RF
No Action
atorvastatin 80 mg Tablet
80 mg PO QPM 30 Days Qty: 30 0RF
lidocaine 4 % Adhesive Patch,Medicated
1 patch topical DAILY 30 Days Qty: 30 0RF
alendronate 70 mg Tablet
70 mg PO CORTES@0600 30 Days Qty: 5 0RF
clopidogrel 75 mg Tablet
75 mg PO DAILY 30 Days Qty: 30 0RF
docusate sodium 100 mg Capsule
100 mg PO BID PRN (Reason: constipation) 30 Days Qty: 60 0RF
bisacodyl 5 mg Tablet,Delayed Release (Dr/Ec)
10 mg PO DAILYPRN PRN (Reason: constipation) 30 Days Qty: 30 0RF
calcium carbonate-vitamin D3 [Oyster Shell Calcium-Vit D3] 500 mg-5 mcg (200 unit) Tablet
1 tab PO DAILY 30 Days Qty: 30 0RF
acetaminophen 325 mg Tablet
650 mg PO Q6HPRN PRN (Reason: mild pain) 30 Days Qty: 100 0RF
cyanocobalamin (vitamin B-12) 1,000 mcg Tablet
1,000 mcg PO DAILY 30 Days Qty: 30 0RF
pantoprazole 40 mg Tablet,Delayed Release (Dr/Ec)
40 mg PO DAILY 30 Days Qty: 30 0RF
cyclosporine 0.05 % Dropperette
1 drops BOTH EYES BID 30 Days Qty: 1 0RF
carboxymethylcellulose sodium [TheraTears] 1 % Dropperette,Gel
2 drops BOTH EYES QIDPRN PRN (Reason: dry eyes) 30 Days Qty: 1 0RF
mirabegron [Myrbetriq] 50 MG tablet extended release 24 hr
50 mg PO DAILY 30 Days Qty: 30 0RF
Referrals:
Phill Peña MD [Family Provider, Family Practice]
Activity Restrictions/Additional Instructions:
As discussed wash twice daily soap and water pat dry. Follow-up with family doctor the next 2 days for wound check. Return if any signs of infection of increasing redness swelling drainage pain fever chills red streaking. Antibiotic twice a day
for the next 5 days to prevent infection. This medication was sent to your pharmacy.
Interventions
Interventions:
*Risk Screen - Suicide Last Done: 01/26/25 09:20
*General Assessment Last Done: 01/26/25 10:16
*Neglect/Abuse Screening Last Done: 01/26/25 09:20
*ED- Fall Risk Assessment Last Done: 01/26/25 10:16
*ED COVID-19 Vaccine History Last Done: 01/26/25 10:16
ED-Skin Assessment Last Done: 01/26/25 10:16
Discharge Date and Time
Print Language: [id number]
[2025-01-26] MEDS: ADACEL 0.5 ML IM (10:55)
[2025-01-26] MEDS: VIBRAMYCIN 100 MG PO (10:55)
[2025-01-26 11:00] VITALS: BP 128/96
== END 2025-01-26 11:45 | disposition home or self-care (01) ==
LOC: EMR 09:18
PROVIDERS: EMERGENCY PHYSICIAN Student in an Organized Health Care Education/Training Program; FAMILY PHYSICIAN Family Medicine
DX: S91.115A Laceration without foreign body of left lesser toe(s) without damage to nail, initial encounter (principal); X58.XXXA Exposure to other specified factors, initial encounter; E78.00 Pure hypercholesterolemia, unspecified; Z86.73 Personal history of transient ischemic attack (TIA), and cerebral infarction without residual deficits; Z23 Encounter for immunization
CPT/HCPCS: 90471; 99283; 73630; 90715

== ENCOUNTER → 2025-02-10 08:37 | Outpatient (REF) | payer MEDICARE, BC, SELFPAY | LOC: WDC 08:37 | PROVIDERS: ATTENDING PHYSICIAN Family Medicine | DX: Z12.31 Encounter for screening mammogram for malignant neoplasm of breast (principal) | CPT/HCPCS: 77063; 77067 ==

== ENCOUNTER → 2025-03-09 08:34 | Outpatient (REF) | payer MEDICARE, BC, SELFPAY ==
[2025-03-09 11:30] LABS: ALT (SGPT) 26 U/L (0-35); AST (SGOT) 35 U/L (14-36); Albumin 4.4 g/dl (3.5-5.0); Alkaline Phosphatase 56 U/L (38-126); Blood Urea Nitrogen 15 mg/dl (7-17); Calcium 9.2 mg/dl (8.4-10.2); Carbon Dioxide 27 mmol/L (22-30); Chloride 108 mmol/L (98-107); Glucose 84 mg/dl (70-99); HDL Cholesterol 69 mg/dl; LDL Cholesterol, Calculated 69 mg/dl; Potassium 4.1 mmol/L (3.5-5.1); Sodium 141 mmol/L (135-145); Total Protein 6.6 g/dl (6.3-8.2); Very Low Density Lipoprotein 18 mg/dl (0-30); eGFR > 60.00
== END ==
LOC: REG 08:34
PROVIDERS: ATTENDING PHYSICIAN Family Medicine
DX: E78.2 Mixed hyperlipidemia (principal)
CPT/HCPCS: 36415; 80053; 80061

== ENCOUNTER 2025-04-21 21:34 | Emergency (ER) | payer MEDICARE, BC, SELFPAY ==
[2025-04-21 21:36] VITALS: BP 118/81
--- NOTE | 2025-04-21 22:37 | ED.MUSCINJ ---
HPI-Injury
General
Chief Complaint: Fall
Source: patient
Exam Limitations: none
Time Seen by Provider: 04/21/25 22:21
History of Present Illness-Injury
Initial Injury comments:
89-year-old female on [place] presents after a fall. She sustained a fall last night hitting the right side of her head. No loss of consciousness. She was doing well however today she was trying to focus on some work on the computer and started
to feel unwell. She denies significant headache or vision change. No neck pain. She notes a bruise to the right forehead. No other complaints
Past History
Past History
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
ED Past Surgical History: Gynecological (interstim device), Orthopedic and Tonsilectomy
Social History
Tobacco: Non-smoker
Alcohol: Occasional
Drug: None
Personal:
Living: alone
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
Family History
Family History: Other (Reviewed and Noncontributory); Negative Early CAD
Phy Exam
Physical Exam
Physical Exam:
General: Well-appearing female no acute respiratory distress
HEENT: Normocephalic contusion noted to the right forehead pupils equal round reactive to light heart: Regular rate and rhythm
Lungs: Clear no wheeze neurologic exam alert and oriented no facial asymmetry conversing appropriately
Abdomen is soft nontender
Injury Course
Orders/Labs/Results
Orders:
Orders
04/21/25 21:42
CT Head W/o Iv Contrast Urgent
Comment:
Reason For Exam: fall, hit head, on plavix
MDM/Problems Addressed
Differential Diagnosis Includes:
Fall with head strike on blood thinners. Concern for skull fracture versus intracranial hemorrhage versus scalp contusion. Neurologically she is intact. No neck tenderness. CT of the head is pending
*Pulse Oximetry
SaO2: 95
Oxygen Mode of Delivery: Room air
Patient hypoxic: no
*Critical Care Note
Total Time (30-74mins, 75-104mins- exclusive of procedures): Not Applicable
Update Note
Update Note:
CT of the head negative for acute finding. Patient reassured. Stable for discharge
ED Attending Note
-
Portions of this chart may have been created with voice recognition software.� Occasional wrong word or��sound alike� substitutions may have occurred due to the inherent limitations of voice recognition software.
Discharge Plan
Departure
Patient Disposition: Home (Routine Discharge)
Date of Disposition: 04/21/25
Time of Disposition: 23:51
Patient with high blood pressure during this ER visit?: No
Discharge Problem:
Contusion
Instructions: Contusion (DC)
Prescriptions:
No Action
doxycycline hyclate 100 mg capsule
100 mg PO BID Qty: 5 0RF
atorvastatin 80 mg Tablet
80 mg PO QPM 30 Days Qty: 30 0RF
lidocaine 4 % Adhesive Patch,Medicated
1 patch topical DAILY 30 Days Qty: 30 0RF
alendronate 70 mg Tablet
70 mg PO CORTES@0600 30 Days Qty: 5 0RF
clopidogrel 75 mg Tablet
75 mg PO DAILY 30 Days Qty: 30 0RF
docusate sodium 100 mg Capsule
100 mg PO BID PRN (Reason: constipation) 30 Days Qty: 60 0RF
bisacodyl 5 mg Tablet,Delayed Release (Dr/Ec)
10 mg PO DAILYPRN PRN (Reason: constipation) 30 Days Qty: 30 0RF
calcium carbonate-vitamin D3 [Oyster Shell Calcium-Vit D3] 500 mg-5 mcg (200 unit) Tablet
1 tab PO DAILY 30 Days Qty: 30 0RF
acetaminophen 325 mg Tablet
650 mg PO Q6HPRN PRN (Reason: mild pain) 30 Days Qty: 100 0RF
cyanocobalamin (vitamin B-12) 1,000 mcg Tablet
1,000 mcg PO DAILY 30 Days Qty: 30 0RF
pantoprazole 40 mg Tablet,Delayed Release (Dr/Ec)
40 mg PO DAILY 30 Days Qty: 30 0RF
cyclosporine 0.05 % Dropperette
1 drops BOTH EYES BID 30 Days Qty: 1 0RF
carboxymethylcellulose sodium [TheraTears] 1 % Dropperette,Gel
2 drops BOTH EYES QIDPRN PRN (Reason: dry eyes) 30 Days Qty: 1 0RF
mirabegron [Myrbetriq] 50 MG tablet extended release 24 hr
50 mg PO DAILY 30 Days Qty: 30 0RF
Referrals:
Phill Peña MD [Family Provider, Family Practice]
Activity Restrictions/Additional Instructions:
Rest. You may use Tylenol for pain. Return if worse otherwise follow-up with your doctor
Interventions
Interventions:
*Risk Screen - Suicide Last Done: 04/21/25 21:36
*General Assessment Last Done: 04/21/25 21:36
*ED- Fall Risk Assessment Last Done: 04/21/25 21:36
*ED COVID-19 Vaccine History Last Done: 04/21/25 21:36
Discharge Date and Time
Print Language: PAKISTANI
[2025-04-21 23:41] VITALS: BP 140/99
[2025-04-22] VITALS: BP 148/66
== END 2025-04-22 00:28 | disposition home or self-care (01) ==
LOC: EMR 21:34
PROVIDERS: EMERGENCY PHYSICIAN Emergency Medicine; FAMILY PHYSICIAN Family Medicine
DX: S00.83XA Contusion of other part of head, initial encounter (principal); W19.XXXA Unspecified fall, initial encounter; E78.00 Pure hypercholesterolemia, unspecified; Z86.73 Personal history of transient ischemic attack (TIA), and cerebral infarction without residual deficits; Z79.01 Long term (current) use of anticoagulants
CPT/HCPCS: 99284; 70450